=== PATIENT | male | born 1935 | race Caucasian/White ===

== ENCOUNTER 2020-12-16 14:53 | Emergency (ER) | payer MEDICARE, OTHER ==
[~2020-12-16] VITALS: Ht 167.6 cm; Wt 69.2 kg
[~2020-12-16 14:53] MED LIST: CALC-955 PO; CELE-193 PO; CLOP75TA34 PO; FA/M1TAB2 PO; FURO40TA4 PO; GABA-338 PO; GLUC-150 PO; LANS30CA37 PO; LINA145C PO; LOP25T PO; NOR5T PO; RANO500T2 PO
[2020-12-16 16:04] LABS: BASOPHILS % (AUTO) 0.2 % (0-1); EOSINOPHILS % (AUTO) 0.2 % (0-6); HEMATOCRIT 43.5 % (42.0-52.0); HEMOGLOBIN 14.5 g/dl (14.0-17.9); LYMPHOCYTES # (AUTO) 1.1 X10'3 (1.1-4.8); LYMPHOCYTES % (AUTO) 15.6 % (21-51); MEAN CORPUSCULAR HEMOGLOBIN 32.3 PG (27.0-31.0); MEAN CORPUSCULAR HGB CONC 33.3 g/dL (33.0-36.5); MEAN CORPUSCULAR VOLUME 97.1 FL (78-98); MEAN PLATELET VOLUME 7.7 FL (7.4-10.4); MONOCYTES # (AUTO) 0.5 X10'3 (0-0.9); MONOCYTES % (AUTO) 6.7 % (2-12); NEUTROPHILS # (AUTO) 5.7 X10'3 (1.8-7.7); NEUTROPHILS % (AUTO) 77.3 % (42-75); PLATELET COUNT 139 X10'3 (140-440); RED BLOOD COUNT 4.48 X10'6 (4.70-6.10); RED CELL DISTRIBUTION WIDTH 14.2 % (11.5-14.5); WHITE BLOOD COUNT 7.4 X10'3 (4.5-11.0)
[2020-12-16 16:29] LABS: ALANINE AMINOTRANSFERASE 23 U/L (12-78); ALBUMIN 3.4 G/DL (3.4-5.0); ALKALINE PHOSPHATASE 133 IU/L (46-116); ANION GAP 9 (8-16); ASPARTATE AMINO TRANSFERASE 24 U/L (10-37); BILIRUBIN,TOTAL 1.3 MG/DL (0.1-1.0); BLOOD UREA NITROGEN 30 MG/DL (7-18); BUN/CREATININE RATIO 18.3 (5.4-32.0); CHLORIDE 108 MMOL/L (99-107); CREATININE 1.64 MG/DL (0.60-1.10); GLUCOSE 155 MG/DL (70-104); POTASSIUM 3.9 MMOL/L (3.5-5.1); SODIUM 144 MMOL/L (135-145); TOTAL CARBON DIOXIDE 26.9 MMOL/L (24-32); TOTAL PROTEIN 6.7 G/DL (6.4-8.2); eGFR 40 ML/MIN
--- NOTE | 2020-12-16 22:29 | NUR ---
THIS PATIENT WAS ROOMED OUT OF [place] SAFE GUIDELINES OF PATIENT CARE BECOMING MY 5TH PATIENT. PT IS AOX4 GCS 15 IN NAD CURRENTLY WITH AT BEDSIDE; UPON INITIAL ASSESSMENT PT IS BRADYCARDIC, STATES HE HAS A BIOTRONIC PACEMAKER WHICH WE DO NOT HAVE AN INTERROGATOR FOR; MD WANTS TO INTERROGATE; NOTIFIED HIM WE DO NOT HAVE ONE. PT HAS BEEN DIZZY ONGOING FOR DAYS BUT INCREASING TONIGHT;
--- NOTE | 2020-12-16 22:44 | NUR ---
[facility] WAS CONTACTED AND THE REP WILL BE CALLING BACK FOR INTERROGATION
--- NOTE | 2020-12-16 23:14 | NUR ---
[employer] rep called back; faxed over records; states he does not note anything out of the normal; pacemaker is set at 50. notified.
[2020-12-16 23:29] VITALS: BP 139/20
== END 2020-12-16 23:31 | disposition home or self-care (01) ==
LOC: ER 14:54
DX: R42 Dizziness and giddiness (principal); Z20.822 Contact with and (suspected) exposure to COVID-19; R53.1 Weakness; E86.0 Dehydration; I25.10 Atherosclerotic heart disease of native coronary artery without angina pectoris; I10 Essential (primary) hypertension; Z86.73 Personal history of transient ischemic attack (TIA), and cerebral infarction without residual deficits; Z98.890 Other specified postprocedural states; Z79.899 Other long term (current) drug therapy
CPT/HCPCS: 36415; 71045; 80053; 83880; 84484; 85025; 87635; 93005; 99285; C9803

== ENCOUNTER 2022-02-18 07:42 | Emergency (ER) | payer MEDICARE, OTHER ==
[~2022-02-18] VITALS: Ht 170.2 cm; Wt 153.0 kg
[2022-02-18 08:40] LABS: BASOPHILS # (AUTO) 0.1 X10'3 (0-0.2); BASOPHILS % (AUTO) 0.8 % (0-1); EOSINOPHILS % (AUTO) 0.7 % (0-6); HEMATOCRIT 44.4 % (42.0-52.0); HEMOGLOBIN 14.4 g/dl (14.0-17.9); LYMPHOCYTES # (AUTO) 0.7 X10'3 (1.1-4.8); LYMPHOCYTES % (AUTO) 11.2 % (21-51); MEAN CORPUSCULAR HEMOGLOBIN 31.1 PG (27.0-31.0); MEAN CORPUSCULAR HGB CONC 32.4 g/dL (33.0-36.5); MEAN CORPUSCULAR VOLUME 95.9 FL (78-98); MEAN PLATELET VOLUME 8.1 FL (7.4-10.4); MONOCYTES # (AUTO) 0.7 X10'3 (0-0.9); MONOCYTES % (AUTO) 10.4 % (2-12); NEUTROPHILS # (AUTO) 5.2 X10'3 (1.8-7.7); NEUTROPHILS % (AUTO) 76.9 % (42-75); PLATELET COUNT 102 X10'3 (140-440); RED BLOOD COUNT 4.63 X10'6 (4.70-6.10); RED CELL DISTRIBUTION WIDTH 14.2 % (11.5-14.5); WHITE BLOOD COUNT 6.7 X10'3 (4.5-11.0)
[2022-02-18 08:51] LABS: ALANINE AMINOTRANSFERASE 35 U/L (12-78); ALBUMIN 3.1 G/DL (3.4-5.0); ALBUMIN/GLOBULIN RATIO 0.9 (1.1-1.5); ALKALINE PHOSPHATASE 128 IU/L (46-116); ANION GAP 9 (8-16); ASPARTATE AMINO TRANSFERASE 39 U/L (10-37); BILIRUBIN,TOTAL 1.6 MG/DL (0.1-1.0); BLOOD UREA NITROGEN 28 MG/DL (7-18); BUN/CREATININE RATIO 18.4 (5.4-32.0); CALCIUM 8.9 MG/DL (8.5-10.1); CHLORIDE 108 MMOL/L (99-107); CREATININE 1.52 MG/DL (0.60-1.10); GLUCOSE 123 MG/DL (70-104); POTASSIUM 4.2 MMOL/L (3.5-5.1); SODIUM 143 MMOL/L (135-145); TOTAL CARBON DIOXIDE 25.6 MMOL/L (24-32); TOTAL PROTEIN 6.7 G/DL (6.4-8.2); eGFR 44 ML/MIN
[2022-02-18] MEDS ORDERED: amLODIPine 5mg tablet PO ONE (11:45)
[2022-02-18 12:33] VITALS: BP_DIAS 87
[2022-02-18 12:35] VITALS: BP_SYST 170
== END 2022-02-18 13:35 | disposition home or self-care (01) ==
LOC: ER 07:42
DX: R07.89 Other chest pain (principal); I10 Essential (primary) hypertension
CPT/HCPCS: 36415; 71045; 80053; 83880; 84484; 85025; 93005; 99285

== ENCOUNTER 2023-04-10 09:52 | Emergency (ER) | payer OTHER, MEDICARE ==
[~2023-04-10] VITALS: Ht 168.9 cm; Wt 69.0 kg
[~2023-04-10 09:52] MED LIST changes: +ASPI81TA53 PO; +ATOR40TA PO; +ATRNS BOTHNARES; +AZEL137S4 BOTHNARES; +BACL-11 PO; -CALC-955 PO; +CARB-126 PO; +CARB1TAB44 PO; +CARV3.1289 PO; -CELE-193 PO; +CHOL500049 PO; -CLOP75TA34 PO; +DONE10TA44 PO; +DOXA2TAB46 PO; -FA/M1TAB2 PO; +GABA-530 PO; -GLUC-150 PO; +ISOS120T13 PO; -LANS30CA37 PO; -LINA145C PO; -LOP25T PO; -NOR5T PO; +PANT40TA54 PO; +POTA5TAB2 PO; -RANO500T2 PO; +TRAZ-251 PO
[2023-04-10 10:44] LABS: BILIRUBIN,URINE NEGATIVE (Neg); CLARITY,URINE SLIGHTLY CLOUDY (Clear); COLOR,URINE YELLOW (Yellow); GLUCOSE, URINE NEGATIVE (Neg); KETONES,URINE NEGATIVE (Neg); LEUKOCYTE ESTERASE ,URINE NEGATIVE (Neg); NITRITES, URINE NEGATIVE (Neg); OCCULT BLOOD,URINE NEGATIVE (Neg); PH,URINE 5.5 (4.8-8.0); PROTEIN,URINE NEGATIVE (Neg)
[2023-04-10 10:49] LABS: UA COLLECTION TYPE CLN CATCH MIDSTREAM
[2023-04-10 10:50] LABS: MUCUS STRANDS FEW /LPF (Neg)
[2023-04-10 10:51] LABS: BACTERIA,URINE FEW /HPF (Neg); COARSE GRANULAR CAST 0-3 /LPF (NEGATIVE); RBC,URINE 0-2 /HPF (0-2); SQUAMOUS EPITHELIAL CELL,UR FEW /LPF (FEW); WBC,URINE 0-4 /HPF (0-4)
[2023-04-10 11:02] LABS: BASOPHILS % (AUTO) 0.1 % (0-1); EOSINOPHILS # (AUTO) 0.3 X10'3 (0-0.9); EOSINOPHILS % (AUTO) 3.1 % (0-6); HEMATOCRIT 43.5 % (42.0-52.0); LYMPHOCYTES # (AUTO) 0.7 X10'3 (1.1-4.8); LYMPHOCYTES % (AUTO) 8.2 % (21-51); MEAN CORPUSCULAR HGB CONC 32.1 g/dL (33.0-36.5); MEAN CORPUSCULAR VOLUME 99.5 FL (78-98); MONOCYTES # (AUTO) 0.7 X10'3 (0-0.9); MONOCYTES % (AUTO) 7.4 % (2-12); NEUTROPHILS # (AUTO) 7.2 X10'3 (1.8-7.7); NEUTROPHILS % (AUTO) 81.2 % (42-75); PLATELET COUNT 100 X10'3 (140-440); RED BLOOD COUNT 4.37 X10'6 (4.70-6.10); RED CELL DISTRIBUTION WIDTH 15.3 % (11.5-14.5); WHITE BLOOD COUNT 8.9 X10'3 (4.5-11.0)
[2023-04-10 11:10] LABS: URINE AMPHETAMINE SCREEN NEGATIVE (Neg); URINE BARBITUATE SCREEN NEGATIVE (Neg); URINE BENZODIAZEPINES SCREEN NEGATIVE (Neg); URINE CANNABINOID SCREEN NEGATIVE (Neg); URINE COCAINE SCREEN NEGATIVE (Neg); URINE METHADONE SCREEN NEGATIVE (Neg); URINE OPIATE SCREEN POSITIVE (Neg); URINE PHENCYCLIDINE SCREEN NEGATIVE (Neg)
[2023-04-10] MEDS ORDERED: normal saline 500ml IV soln 500 ML IV ONE (11:20)
[2023-04-10 11:26] LABS: ALANINE AMINOTRANSFERASE 15 U/L (12-78); ALBUMIN/GLOBULIN RATIO 0.6 (1.1-1.5); ALKALINE PHOSPHATASE 129 IU/L (46-116); ANION GAP 3 (8-16); ASPARTATE AMINO TRANSFERASE 52 U/L (10-37); BILIRUBIN,TOTAL 1.4 MG/DL (0.1-1.0); BLOOD UREA NITROGEN 39 MG/DL (7-18); BUN/CREATININE RATIO 27.1 (10.0-20.0); CALCIUM 8.4 MG/DL (8.5-10.1); CHLORIDE 109 MMOL/L (99-107); CREATININE 1.44 MG/DL (0.60-1.10); GLUCOSE 148 MG/DL (70-104); SODIUM 139 MMOL/L (135-145); TOTAL CARBON DIOXIDE 26.8 MMOL/L (24-32); TOTAL PROTEIN 5.3 G/DL (6.4-8.2); eCRCL 33 ML/MIN; eGFR 46 ML/MIN
[2023-04-10 11:33] LABS: PRO BRAIN NATRIURETIC PEPTIDE 820 PG/ML (0-450)
[2023-04-10 11:36] LABS: POTASSIUM 4.2 MMOL/L (3.5-5.1)
[2023-04-10 12:22] VITALS: TEMP 97.7
[2023-04-10 14:39] VITALS: BP 110/76; PULSE 67; RESP 17; O2SAT 97
== END 2023-04-10 14:41 ==
LOC: ER 09:53
DX: T40.2X1A Poisoning by other opioids, accidental (unintentional), initial encounter (principal); I10 Essential (primary) hypertension; Z79.82 Long term (current) use of aspirin; Z79.899 Other long term (current) drug therapy; Y92.89 Other specified places as the place of occurrence of the external cause
CPT/HCPCS: 36415; 70450; 71045; 80053; 80305; 81001; 83880; 84484; 85025; 93005; 99285; J7040

== ENCOUNTER 2023-10-07 09:10 | Emergency (ER) | payer OTHER, MEDICARE ==
[~2023-10-07] VITALS: Ht 170.2 cm; Wt 75.0 kg
[~2023-10-07 09:10] MED LIST changes: +APIX2.5T PO; -ASPI81TA53 PO; -CARB-126 PO; -CARB1TAB44 PO; +DICL100G60 TOP; +DOXA1TAB2 PO; -DOXA2TAB46 PO; -FURO40TA4 PO; -GABA-338 PO; +PANT-47 PO; -PANT40TA54 PO; -POTA5TAB2 PO; -TRAZ-251 PO; +[UNRECOGNIZED DRUG - CODE] PO
[2023-10-07 09:56] LABS: ALANINE AMINOTRANSFERASE 16 U/L (12-78); ALBUMIN 3.1 G/DL (3.4-5.0); ALBUMIN/GLOBULIN RATIO 0.7 (1.1-1.5); ALKALINE PHOSPHATASE 201 IU/L (46-116); ANION GAP 8 (8-16); ASPARTATE AMINO TRANSFERASE 27 U/L (10-37); BILIRUBIN,TOTAL 1.5 MG/DL (0.1-1.0); BLOOD UREA NITROGEN 19 MG/DL (7-18); BUN/CREATININE RATIO 13.4 (10.0-20.0); CALCIUM 9.2 MG/DL (8.5-10.1); CHLORIDE 105 MMOL/L (99-107); CREATININE 1.42 MG/DL (0.60-1.10); GLUCOSE 126 MG/DL (70-104); POTASSIUM 3.8 MMOL/L (3.5-5.1); SODIUM 141 MMOL/L (135-145); TOTAL CARBON DIOXIDE 28.3 MMOL/L (24-32); TOTAL PROTEIN 7.5 G/DL (6.4-8.2); eCRCL 34 ML/MIN; eGFR 47 ML/MIN
[2023-10-07 10:03] LABS: BILIRUBIN,DIRECT 0.7 MG/DL (0-0.3); PRO BRAIN NATRIURETIC PEPTIDE 3526 PG/ML (0-450)
[2023-10-07 10:07] LABS: BASOPHILS % (AUTO) 0.3 % (0-1); EOSINOPHILS % (AUTO) 0.6 % (0-6); HEMATOCRIT 39.9 % (42.0-52.0); HEMOGLOBIN 12.2 g/dl (14.0-17.9); LYMPHOCYTES # (AUTO) 1.2 X10'3 (1.1-4.8); LYMPHOCYTES % (AUTO) 18.5 % (21-51); MEAN CORPUSCULAR HEMOGLOBIN 23.5 PG (27.0-31.0); MEAN CORPUSCULAR HGB CONC 30.5 g/dL (33.0-36.5); MEAN PLATELET VOLUME 7.6 FL (7.4-10.4); MONOCYTES # (AUTO) 0.4 X10'3 (0-0.9); MONOCYTES % (AUTO) 6.8 % (2-12); NEUTROPHILS # (AUTO) 4.8 X10'3 (1.8-7.7); NEUTROPHILS % (AUTO) 73.8 % (42-75); PLATELET COUNT 153 X10'3 (140-440); RED BLOOD COUNT 5.18 X10'6 (4.70-6.10); RED CELL DISTRIBUTION WIDTH 18.4 % (11.5-14.5); WHITE BLOOD COUNT 6.6 X10'3 (4.5-11.0)
[2023-10-07] MEDS: furosemide 40mg/4ml inj IV ONE (12:36)
[2023-10-07 13:35] LABS: LYMPHOCYTES,BODY FLUID 70 %; MONOCYTES,BODY FLUID 18 %; NEUTROPHILS,BODY FLUID 12 %
[2023-10-07 13:38] LABS: BF RBC COUNT 2500 /CU MM; BF WBC COUNT 288 /CU MM (0-1000); BFAPPEAR HAZY; BFCOLOR YELLOW; BFSOURCE LEFT PLEURAL FLD; BFVOLUME 18 ML
[2023-10-07 13:54] LABS: LDH,BODY FLUID 71 U/L
[2023-10-07 15:49] VITALS: BP 178/98; PULSE 69; RESP 14; TEMP 98.1; O2SAT 69
[2023-10-07] MEDS: acetaminophen w/codeine (30MG) #3 tablet PO ONE (15:52)
== END 2023-10-07 16:02 | disposition home or self-care (01) ==
LOC: ER 09:11
DX: J90 Pleural effusion, not elsewhere classified (principal); R09.02 Hypoxemia; I10 Essential (primary) hypertension; Z79.899 Other long term (current) drug therapy; Z79.1 Long term (current) use of non-steroidal anti-inflammatories (NSAID)
CPT/HCPCS: 32555; 36415; 71045; 71250; 80048; 80076; 83615; 83880; 84484; 85025; 87070; 89051; 93005; 96374; 99285; J1940; A6258

== ENCOUNTER 2023-10-14 05:39 | Emergency (ER) | payer OTHER, MEDICARE ==
[~2023-10-14] VITALS: Ht 167.6 cm; Wt 79.2 kg
[2023-10-14 07:15] LABS: BASOPHILS % (AUTO) 0.1 % (0-1); EOSINOPHILS # (AUTO) 0.2 X10'3 (0-0.9); HEMATOCRIT 40.1 % (42.0-52.0); HEMOGLOBIN 12.5 g/dl (14.0-17.9); LYMPHOCYTES # (AUTO) 1.2 X10'3 (1.1-4.8); LYMPHOCYTES % (AUTO) 21.6 % (21-51); MEAN CORPUSCULAR HEMOGLOBIN 24.4 PG (27.0-31.0); MEAN CORPUSCULAR HGB CONC 31.2 g/dL (33.0-36.5); MEAN CORPUSCULAR VOLUME 78.1 FL (78-98); MEAN PLATELET VOLUME 7.7 FL (7.4-10.4); MONOCYTES # (AUTO) 0.4 X10'3 (0-0.9); MONOCYTES % (AUTO) 6.9 % (2-12); NEUTROPHILS # (AUTO) 3.9 X10'3 (1.8-7.7); NEUTROPHILS % (AUTO) 68.4 % (42-75); PLATELET COUNT 143 X10'3 (140-440); RED BLOOD COUNT 5.13 X10'6 (4.70-6.10); RED CELL DISTRIBUTION WIDTH 23.2 % (11.5-14.5); WHITE BLOOD COUNT 5.7 X10'3 (4.5-11.0)
[2023-10-14 07:32] LABS: ALANINE AMINOTRANSFERASE 15 U/L (12-78); ALBUMIN 2.9 G/DL (3.4-5.0); ALBUMIN/GLOBULIN RATIO 0.7 (1.1-1.5); ALKALINE PHOSPHATASE 225 IU/L (46-116); ANION GAP 8 (8-16); ASPARTATE AMINO TRANSFERASE 38 U/L (10-37); BILIRUBIN,TOTAL 1.2 MG/DL (0.1-1.0); BLOOD UREA NITROGEN 24 MG/DL (7-18); BUN/CREATININE RATIO 17.4 (10.0-20.0); CHLORIDE 107 MMOL/L (99-107); CREATININE 1.38 MG/DL (0.60-1.10); GLUCOSE 119 MG/DL (70-104); SODIUM 142 MMOL/L (135-145); TOTAL CARBON DIOXIDE 26.8 MMOL/L (24-32); TOTAL PROTEIN 7.1 G/DL (6.4-8.2); eCRCL 33 ML/MIN; eGFR 49 ML/MIN
[2023-10-14 07:39] LABS: PRO BRAIN NATRIURETIC PEPTIDE 2815 PG/ML (0-450)
[2023-10-14 11:07] VITALS: BP 170/90; PULSE 75; RESP 21; TEMP 98.6; O2SAT 96
[2023-10-14] MEDS: furosemide 10 MG/1 ML 10ml inj IV ONE (11:12)
== END 2023-10-14 11:09 | disposition home or self-care (01) ==
LOC: ER 05:40
DX: R06.02 Shortness of breath (principal); I50.9 Heart failure, unspecified; I11.0 Hypertensive heart disease with heart failure; I48.91 Unspecified atrial fibrillation; I25.10 Atherosclerotic heart disease of native coronary artery without angina pectoris; F03.90 Unspecified dementia, unspecified severity, without behavioral disturbance, psychotic disturbance, mood disturbance, and anxiety; Z79.899 Other long term (current) drug therapy; Z79.1 Long term (current) use of non-steroidal anti-inflammatories (NSAID); Z95.0 Presence of cardiac pacemaker; Z98.890 Other specified postprocedural states
CPT/HCPCS: 36415; 71045; 80053; 83880; 84484; 85025; 93005; 96374; 99285; J1940

== ENCOUNTER 2023-10-22 06:55 | Emergency (ER) | payer OTHER, MEDICARE ==
[~2023-10-22] VITALS: Ht 168.9 cm; Wt 69.1 kg
[2023-10-22 07:47] LABS: BASOPHILS % (AUTO) 0.4 % (0-1); EOSINOPHILS # (AUTO) 0.2 X10'3 (0-0.9); EOSINOPHILS % (AUTO) 2.4 % (0-6); HEMATOCRIT 43.8 % (42.0-52.0); HEMOGLOBIN 13.6 g/dl (14.0-17.9); LYMPHOCYTES # (AUTO) 1.7 X10'3 (1.1-4.8); LYMPHOCYTES % (AUTO) 24.1 % (21-51); MEAN CORPUSCULAR HEMOGLOBIN 24.7 PG (27.0-31.0); MEAN CORPUSCULAR HGB CONC 31.1 g/dL (33.0-36.5); MEAN CORPUSCULAR VOLUME 79.7 FL (78-98); MEAN PLATELET VOLUME 8.5 FL (7.4-10.4); MONOCYTES # (AUTO) 0.4 X10'3 (0-0.9); MONOCYTES % (AUTO) 6.4 % (2-12); NEUTROPHILS # (AUTO) 4.7 X10'3 (1.8-7.7); NEUTROPHILS % (AUTO) 66.7 % (42-75); PLATELET COUNT 143 X10'3 (140-440); RED CELL DISTRIBUTION WIDTH 25.3 % (11.5-14.5)
[2023-10-22 08:07] LABS: ANISOCYTOSIS 3+; ELLIPTOCYTES FEW; MICROCYTOSIS 1+; PLATELET ESTIMATE NORMAL
[2023-10-22 08:09] VITALS: BP_DIAS 96
[2023-10-22 08:50] LABS: ALBUMIN 3.1 G/DL (3.4-5.0); ANION GAP 11 (8-16); BLOOD UREA NITROGEN 22 MG/DL (7-18); BUN/CREATININE RATIO 15.9 (10.0-20.0); CALCIUM 9.1 MG/DL (8.5-10.1); CHLORIDE 106 MMOL/L (99-107); CREATININE 1.38 MG/DL (0.60-1.10); GLUCOSE 121 MG/DL (70-104); POTASSIUM 3.7 MMOL/L (3.5-5.1); PRO BRAIN NATRIURETIC PEPTIDE 3787 PG/ML (0-450); SODIUM 143 MMOL/L (135-145); TOTAL CARBON DIOXIDE 25.9 MMOL/L (24-32); eCRCL 34 ML/MIN; eGFR 49 ML/MIN
[2023-10-22 10:46] VITALS: PULSE 77; RESP 22; TEMP 98.5; O2SAT 98
== END 2023-10-22 10:49 | disposition home or self-care (01) ==
LOC: ER 06:56
DX: R06.02 Shortness of breath (principal); R05.9 Cough, unspecified; F03.90 Unspecified dementia, unspecified severity, without behavioral disturbance, psychotic disturbance, mood disturbance, and anxiety; I48.91 Unspecified atrial fibrillation; I25.10 Atherosclerotic heart disease of native coronary artery without angina pectoris; I10 Essential (primary) hypertension; Z79.899 Other long term (current) drug therapy; Z86.73 Personal history of transient ischemic attack (TIA), and cerebral infarction without residual deficits; Z95.1 Presence of aortocoronary bypass graft; Z98.890 Other specified postprocedural states; Z95.0 Presence of cardiac pacemaker
CPT/HCPCS: 36415; 71045; 80048; 83880; 84484; 85008; 85025; 93005; 99285

== ENCOUNTER 2024-01-23 19:50 | Emergency (ER) | payer OTHER, MEDICARE ==
[~2024-01-23] VITALS: Ht 167.6 cm; Wt 70.0 kg
[2024-01-24] MEDS ORDERED: LIDO700A32 TOP (02:26)
[2024-01-24] MEDS ORDERED: DICL20GE TOP (02:26)
[2024-01-24 03:49] VITALS: BP 117/78; PULSE 78; RESP 16; TEMP 98.1; O2SAT 100
== END 2024-01-24 03:54 | disposition home or self-care (01) ==
LOC: ER 19:51
DX: S20.212A Contusion of left front wall of thorax, initial encounter (principal); F02.80 Dementia in other diseases classified elsewhere, unspecified severity, without behavioral disturbance, psychotic disturbance, mood disturbance, and anxiety; G20.A1 Parkinson's disease without dyskinesia, without mention of fluctuations; I10 Essential (primary) hypertension; I25.10 Atherosclerotic heart disease of native coronary artery without angina pectoris; I48.91 Unspecified atrial fibrillation; G89.11 Acute pain due to trauma; Z79.899 Other long term (current) drug therapy; Z79.1 Long term (current) use of non-steroidal anti-inflammatories (NSAID); Z86.73 Personal history of transient ischemic attack (TIA), and cerebral infarction without residual deficits; Z95.0 Presence of cardiac pacemaker; Z95.1 Presence of aortocoronary bypass graft; W01.198A Fall on same level from slipping, tripping and stumbling with subsequent striking against other object, initial encounter; Y93.89 Activity, other specified; Y92.89 Other specified places as the place of occurrence of the external cause; Y99.8 Other external cause status
CPT/HCPCS: 70450; 71250; 72125; 99285

== ENCOUNTER 2024-08-01 10:23 | Inpatient (IN) | payer OTHER, MEDICARE ==
[~2024-08-01] VITALS: Ht 162.6 cm; Wt 77.0 kg
[~2024-08-01 10:23] MED LIST changes: +CARB-491 PO; +DICL20GE TOP; +LIDO700A32 TOP; -[UNRECOGNIZED DRUG - CODE] PO
--- NOTE | 2024-08-01 10:41 | ELECTROCARDIOGRAPH REPORT ---
[facility] Test Date: 2024-08-01 Test Time: 10:28:42 Pat Name: MONA CUEVAS Department: EMERGENCY ROOM Room: [place] [address] Gender: M Rn Hedis: : 1935 Requested By: RICHARD BETTS Order Number: [id number] Reading MD: Dr. Jorge Crane Measurements Intervals [place] Rate: 72 P: 0 MI: 153 QRS: 25 QRSD: 95 T: 222 QT: 440 QTc: 482 Interpretive Statements Atrial-paced rhythm Repol abnrm suggests ischemia, anterolateral Baseline wander in lead(s) II Electronically Signed On 08-01-2024 22:15:[address] Jorge Crane Please click the below link to view image of tracing.
--- NOTE | 2024-08-01 11:19 | RADIOLOGY REPORT ---
EXAM: DI CHEST,SINGLE VIEW Indication: SOB Technique: Single frontal view of the chest was obtained Comparison: DI CHEST,SINGLE VIEW on DOS: 10/22/23, DI CHEST,SINGLE VIEW on DOS: 10/14/23, DI CHEST,SING LE VIEW on DOS: 10/07/23, DI CHEST,SINGLE VIEW on DOS: 07/18/23, DI CHEST,SINGLE VIEW on DOS: 04/29/23 FINDINGS: Lines and Tubes: Cardiac pacemaker projects over left chest wall. Lungs: Bibasilar opacities. Pleura: Moderate right and small left pleural effusion. No pneumothorax. Cardiomediastinal contours: Cardiomegaly. Bones: No acute osseous abnormality. IMPRESSION: Cardiomegaly with moderate right and small left pleural effusion.
[2024-08-01 11:23] LABS: BASOPHILS % (AUTO) 0.5 % (0-1); EOSINOPHILS # (AUTO) 0.1 X10'3 (0-0.9); EOSINOPHILS % (AUTO) 1.4 % (0-6); HEMATOCRIT 28.3 % (42.0-52.0); HEMOGLOBIN 8.8 g/dl (14.0-17.9); LYMPHOCYTES # (AUTO) 0.7 X10'3 (1.1-4.8); MEAN CORPUSCULAR HEMOGLOBIN 22.8 PG (27.0-31.0); MEAN CORPUSCULAR HGB CONC 31.1 g/dL (33.0-36.5); MEAN CORPUSCULAR VOLUME 73.4 FL (78-98); MEAN PLATELET VOLUME 7.5 FL (7.4-10.4); MONOCYTES # (AUTO) 0.5 X10'3 (0-0.9); MONOCYTES % (AUTO) 10.3 % (2-12); NEUTROPHILS # (AUTO) 3.5 X10'3 (1.8-7.7); NEUTROPHILS % (AUTO) 72.8 % (42-75); PLATELET COUNT 165 X10'3 (140-440); RED BLOOD COUNT 3.85 X10'6 (4.70-6.10); RED CELL DISTRIBUTION WIDTH 20.1 % (11.5-14.5); WHITE BLOOD COUNT 4.8 X10'3 (4.5-11.0)
[2024-08-01 11:41] LABS: ANION GAP 6 (8-16); BLOOD UREA NITROGEN 18 MG/DL (7-18); CALCIUM 8.4 MG/DL (8.5-10.1); CHLORIDE 105 MMOL/L (99-107); CREATININE 1.64 MG/DL (0.60-1.10); GLUCOSE 177 MG/DL (70-104); POTASSIUM 3.7 MMOL/L (3.5-5.1); PRO BRAIN NATRIURETIC PEPTIDE 1707 PG/ML (0-450); SODIUM 139 MMOL/L (135-145); TOTAL CARBON DIOXIDE 28.2 MMOL/L (24-32); eCRCL 26 ML/MIN; eGFR 40 ML/MIN
[2024-08-01 12:02] LABS: ANISOCYTOSIS 3+; MICROCYTOSIS 1+; PLATELET ESTIMATE NORMAL
[2024-08-01 12:03] LABS: BURR CELLS FEW; ELLIPTOCYTES FEW; TARGET CELLS FEW
--- NOTE | 2024-08-01 12:04 | Physician Documentation ---
History of Present Illness ~ Chief Complaint: Shortness of Breath Stated Complaint: WEAKNESS Time Seen by MD: 10:37 Primary Medical Doctor: Cain El MD; CAMERA ENGINEER: NILESH Source: patient Mode of Arrival: EMS Exam Limitations: no limitations HPI 89-year-old male who comes in today from [place] due to weakness. Patient normally is on room air but is currently requiring oxygen as when paramedics got there his oxygen saturation was 88% on room air. Patient was scheduled for a thoracentesis on Sunday which he gets occasionally for his congestive heart failure. Patient is on Lasix 20 mg. Patient denies chest pain, abdominal pain, nausea, vomiting or any other concerns. Medication Reconciliation Allergies: Coded Allergies: No Known Allergies (Unverified , 08/01/24) Scheduled Apixaban (Eliquis), 1 TAB PO Q12H, (Reported) Atorvastatin Calcium* (Lipitor*), 1 TAB PO HS, (Reported) Azelastine HCl (Azelastine HCl), SPR BOTHNARES TID, (Reported) Baclofen (Baclofen), 1 TAB PO HS, (Reported) Carbidopa/Levodopa (Carbidopa-Levodopa 25-100 Tab), 2 EACH PO QID, (Reported) Cholecalciferol (Vitamin D3) (Vitamin D3), 1 CAP PO Q7D, (Reported) Diclofenac Sodium (Arthritis Pain), 1 APPLIC TOP DAILY, (Reported) Donepezil Hcl (Aricept), 10 MG PO HS, (Reported) Duloxetine HCl (Duloxetine HCl), 1 CAP PO HS, (Reported) Furosemide (Furosemide), 1 TAB PO BID, (Reported) Gabapentin (Gabapentin), 1 CAP PO DAILY, (Reported) Ipratropium [place] Nasal [place]* (Atrovent Nasal [place] 0.06*), 2 SPRAYS BOTHNARES Q8H, (Reported) Isosorbide Mononitrate (Isosorbide Mononitrate ER), 1 TAB PO DAILY, (Reported) Pantoprazole Sodium (PROTONIX tablet), 1 TAB PO DAILY, (Reported) Potassium Citrate (Potassium Citrate ER), 1 TAB PO Q12H, (Reported) Tamsulosin Hcl* (Flomax*), 1 CAP PO HS, (Reported) Valsartan (Valsartan), 1 TAB PO DAILY, (Reported) Vit C/E/Zn/Coppr/Lutein/Zeaxan (Preservision Areds 2 Softgel), 1 CAP PO Q12H, (Reported) Miscellaneous Medications Gabapentin (Neurontin), 300 MG PO, (Reported) Discontinued Medications Carvedilol (Carvedilol), 1 TAB PO Q12H, (Reported) Discontinued Reason: patient no longer taking Diclofenac Sodium (Voltaren Arthritis Pain), 1 APPLIC TOP DAILY Discontinued Reason: patient no longer taking Doxazosin Mesylate (Doxazosin Mesylate), 1 TAB PO DAILY, (Reported) Discontinued Reason: patient no longer taking Lidocaine (Lidoderm), 1 PATCH TOP DAILY Discontinued Reason: patient no longer taking Past Medical History Past Medical History: CVA/TIA/Stroke, Dementia, Parkinson's Disease, Atrial Fibrillation, Coronary Artery Disease, Hypertension Past Surgical History: angioplasty, coronary bypass surgery, orthopedic surgeries, pacemaker Drug Use: none Occupation: retired Review of Systems All Other Systems at this time: Reviewed and Negative Physical Exam Vital Signs: Temperature: 97.8, Source: Oral, Heart Rate: 63, Respiratory Rate: 22, BP: 106/62, Pulse Oximetry: 98, Weight: 77.000 Oxygen Flow Rate: 2.0 Physical Exam GENERAL: Alert, no acute distress. HEENT: NCAT, EOMI, PERRL, normal oropharynx, moist oral mucosa. NECK: Supple, trachea midline. CARDIAC: Regular rate and rhythm, no murmurs, rubs, or gallops. Equal distal pulses. 1+ PITTING lower extremity edema, cap refill less than 2 seconds. RESPIRATORY: DECREASED BS THROUGHOUT LOWER LUNG OSEI WITH SCATTERED CRACKLES AT BASES. SLIGHTLY INCREASED RESPIRATORY RATE. GASTROINTESTINAL: Non distended, soft, nontender, No guarding or rebound. RECTAL: LIGHT BROWN STOOL IN RECTUM AND AROUND ANUS, FOBT POSITIVE MUSCULOSKELETAL: Normal range of motion, nontender, no swelling. NEUROLOGICAL: Awake, alert, and oriented x 3. SKIN: Warm/dry, no pallor, no rash. PSYCH: Alert and appropriate. Affect congruent with mood. Speech is clear. Good eye contact. Progress Results/Orders Results/Orders Orders - RICHARD BETTS Chest,Single View (08/01/24 10:37) Monitor (08/01/24 10:37) Page Hospitalist (08/01/24 12:04) Urinalysis, Cult If Indicated (08/01/24 12:47) Culture Blood (08/01/24 12:47) Completed Orders - RICHARD BETTS Electrocardiogram (08/01/24 10:37) Cbc/Diff (08/01/24 10:37) Chest,Single View (08/01/24 10:37) PBNP (08/01/24 10:37) BMP (08/01/24 10:37) PTT (08/01/24 10:37) Pt Inr (08/01/24 10:37) Hs Troponin I W Calculations (08/01/24 10:37) Hs Troponin I W Calculations (08/01/24 12:37) Hs Troponin I W Calculations (08/01/24 13:37) Potassium Cl 10meq Er Tablet (Klor-Con 1 (08/01/24 12:44) MG (08/01/24 12:47) Procalcitonin (08/01/24 12:47) Lacticsepsis (08/01/24 12:47) Furosemide 20mg Inj (Lasix Inj) (08/01/24 12:50) Medications Received in ER Medications (Trade) Dose Ordered Sig/Richie Route PRN Reason Start Time Stop Time Status Last Admin Dose Admin (Klor-Con 10mEq ER tablet) 10 meq STAT STAT PO 08/01/24 12:44 08/01/24 12:46 DC 08/01/24 13:12 10 MEQ (Lasix inj) 20 mg ONCE ONCE IV 08/01/24 12:50 08/01/24 12:51 DC 08/01/24 13:12 20 MG Vital Signs 08/01/24 08/01/24 08/01/24 08/01/24 10:32 10:52 11:15 13:04 Temp 97.8 97.8 97.8 Pulse 66 63 63 Resp 22 24 22 18 B/P (MAP) 104/56 106/62 (77) 128/85 (99) Pulse Ox 96 98 100 O2 Flow Rate 2.0 2.0 2.0 Laboratory Tests Test 08/01/24 10:49 08/01/24 13:04 White Blood Count 4.8 Red Blood Count 3.85 L Hemoglobin 8.8 L Hematocrit 28.3 L Mean Corpuscular Volume 73.4 L Mean Corpuscular Hemoglobin 22.8 L Mean Corpuscular Hemoglobin Concent 31.1 L Red Cell Distribution Width 20.1 H Platelet Count 165 Mean Platelet Volume 7.5 Neutrophils (%) (Auto) 72.8 Lymphocytes (%) (Auto) 15.0 L Monocytes (%) (Auto) 10.3 Eosinophils (%) (Auto) 1.4 Basophils (%) (Auto) 0.5 Neutrophils # (Auto) 3.5 Lymphocytes # (Auto) 0.7 L Monocytes # (Auto) 0.5 Eosinophils # (Auto) 0.1 Basophils # (Auto) 0.0 CBC Comment Platelet Estimate Normal Red Blood Cell Morphology Perf Basophilic Stippling Anisocytosis 3+ Microcytosis 1+ Target Cells Few Nick Cells Few Elliptocytes Few Prothrombin Time 11.8 INR International Normalized Ratio 1.2 Activated Partial Thromboplast Time 31 Coagulation Comments Sodium Level 139 Potassium Level 3.7 Chloride Level 105 Carbon Dioxide Level 28.2 Anion Gap 6 L Blood Urea Nitrogen 18 Creatinine 1.64 H Estimated GFR/1.73 m2 40 BUN/Creatinine Ratio 11.0 Glucose Level 177 H Calcium Level 8.4 L Troponin I High Sensitivity 17 17 Pro-B-Type Natriuretic Peptide 1707 H Albumin 2.0 L Chemistry Comments Lactic Acid Level 1.9 Magnesium Level 2.3 Troponin I High Sens Percent Delta 0 Troponin I Hi Sens Absolute Change 0 Procalcitonin 0.10 EKG/XRAY/CT/US/VASC/MRI Chest X-Ray : Interpreted By: radiologist Views: 1 VIEW Indication: shortness of breath Lungs: pulmonary edema, effusion; No: infiltrate Heart Score: Heart Score Response (Comments) Value History Slightly Suspicious 0 EKG Normal 0 Age >65 2 Risk Factors 1 or 2 risk factors 1 Troponin Normal limit 0 Total 3 Medical Decision Making Heart Score: 3 Differential Dx:Considerations: Include: anxiety, asthma, bronchitis, cardiogenic shock, CHF, COPD, dysrhythmia, hypertension, accelerated, hypertension, essential, hypertension, malignant, hyperventilation, hyponatremia, myocardial infarction, panic attack, pneumonia, pneumonitis, pneumothorax, PSVT, pulmonary embolism, respiratory distress, respiratory failure, sinusitis, upper resp. infection, other Additional Infomation PATIENT HAS FINDINGS OF CHF EXACERBATION PATIENT HAS DIFFICULTY TOLERATING HIGH DOSAGE LASIX DUE TO HYPOTENSION RELATED TO AUTONOMIC DYSFUNCTION FROM [place] SCHEDULED FOR THORACENTESIS SUNDAY RECOMMEND ADMISSION FOR TREATMENT OF CHF SINCE NOW REQUIRING OXYGEN AND HAS EVIDENCE OF CHF EXACERBATION Departure Time of Disposition: 12:01 Admitted to Inpatient Unit: to hospitalist Impression: Primary Impression: CHF exacerbation Qualified Codes: I50.9 - Heart failure, unspecified Additional Impressions: Parkinson disease Qualified Codes: G20.A1 - Parkinson's disease without dyskinesia, without mention of fluctuations Hypochromic microcytic anemia Diarrhea Qualified Codes: R19.7 - Diarrhea, unspecified Occult blood positive stool Condition: Fair Referrals: NO PRIMARY CARE PROVIDER (PCP) Education Educated: Patient Educated regarding: diagnosis, treatment, need for follow up Signature Scribe Signature: x Attestation: RICHARD Duarte August 01, 2024 12:04
[2024-08-01 12:12] LABS: APTT 31 SECONDS (22-32); INR 1.2 INR; PROTHROMBIN TIME 11.8 SECONDS (9.0-12.0)
[2024-08-01] MEDS ORDERED: TAMS-55 PO (12:40)
[2024-08-01] MEDS ORDERED: DULO30CA52 PO (12:40)
[2024-08-01] MEDS ORDERED: VALS40TA11 PO (12:40)
[2024-08-01] MEDS ORDERED: FURO20TA4 PO (12:40)
[2024-08-01] MEDS ORDERED: furosemide 10 MG/1 ML 10ml inj IV ONE (12:45)
[2024-08-01] MEDS ORDERED: POTA15TA11 PO (12:46)
[2024-08-01] MEDS ORDERED: GABA300C PO (12:46)
[2024-08-01] MEDS ORDERED: VIT1CAPS46 PO (13:03)
[2024-08-01] MEDS ORDERED: ondansetron/PF 4mg/2ml inj IV PRN (13:05)
[2024-08-01] MEDS ORDERED: acetaminophen 325mg tablet PO PRN (13:05)
[2024-08-01] MEDS ORDERED: potassium Cl 20 mEq SR tablet PO PRN ×2 (13:05)
[2024-08-01] MEDS ORDERED: potassium Cl 40MEQ/1/2NS 520ml 520 ML IV PRN (13:05)
[2024-08-01] MEDS ORDERED: magnesium sulf-water 4G/100mL 100 ML IV PRN (13:05)
[2024-08-01] MEDS ORDERED: magnesium Cl slow-release 64mg tablet PO PRN (13:05)
[2024-08-01] MEDS ORDERED: magnesium sulf-water 2g/50mL 50 ML IV PRN (13:05)
[2024-08-01] MEDS: furosemide 20 MG/2 ML vial IV ONE (13:12)
[2024-08-01] MEDS: potassium chloride 10mEq ER tablet PO STA (13:12)
[2024-08-01 14:27] LABS: OCCULT BLOOD STOOL POSITIVE (Neg)
--- NOTE | 2024-08-01 15:43 | HISTORY AND PHYSICAL-Residence ---
History & Physical Providers to CC Resident Creating Document: CALIXTO MORALES, RES ~ History of Present Illness Primary Medical Doctor: Cain El MD; DRIER TRANSFER CAR OPERATOR: NILESH Reason for Admit\Complaint: Weakness History of Present Illness A 89 years old male with history of CHF, AFib, CVA, coronary artery disease status post stent, CABG, pacemaker, chronic anemia presented to the ED due to progressive weakness. Most of the information gathered from his and medical staff and previous charting. Patient had progressive weakness waiting couple of weeks. Patient had history of multiple thoracentesis in the past due to dyspnea and next appointment is next Sunday. Patient also has history of AFib and on Eliquis. He denied chest pain, tightness, cough, fever chills. Patient denied any hematemesis, melena or any changing in bowel habits. Primary care doctor is Dr. El and manganese breaker is Dr. Senior Allergies: Coded Allergies: No Known Allergies (Unverified , 08/01/24) Home Medications Home Medications Active Reported Preservision Areds 2 Softgel (Vit C/E/Zn/Coppr/Lutein/Zeaxan) 250MG-90MG Capsule 1 Cap PO Q12H 30 Days Potassium Citrate ER (Potassium Citrate) 15 Meq (1620 Mg) Tablet.er 1 Tab PO Q12H 30 Days Neurontin (Gabapentin) 300 Mg Capsule 300 Mg PO Valsartan 40 Mg Tablet 1 Tab PO DAILY Flomax* (Tamsulosin HCl) 0.4 Mg Cap.sr.24h 1 Cap PO HS Duloxetine HCl 30 Mg Capsule.dr 1 Cap PO HS Furosemide 20 Mg Tablet 1 Tab PO BID Gabapentin 100 Mg Capsule 1 Cap PO DAILY 30 Days Vitamin D3 (Cholecalciferol (Vitamin D3)) 1,250 Mcg (41393 Unit) Capsule 1 Cap PO Q7D 28 Days PROTONIX tablet (Pantoprazole Sodium) 40 Mg Tablet.dr 1 Tab PO DAILY 30 Days Arthritis Pain (Diclofenac Sodium) 1 % Gel..gram. 1 Applic TOP DAILY Carbidopa-Levodopa 25-100 Tab (Carbidopa/Levodopa) 25 Mg-100 Mg Tablet 2 Each PO QID Eliquis (Apixaban) 2.5 Mg Tablet 1 Tab PO Q12H 30 Days Atrovent Nasal [place] 0.06* (Ipratropium [place]) 42 Mcg (0.06 %) [place] 2 Sprays BOTHNARES Q8H 20 Days Isosorbide Mononitrate ER (Isosorbide Mononitrate) 120 Mg Tab.er.24h 1 Tab PO DAILY 30 Days Aricept (Donepezil HCl) 10 Mg Tablet 10 Mg PO HS Baclofen 10 Mg Tablet 1 Tab PO HS 30 Days Lipitor* (Atorvastatin Calcium) 40 Mg Tablet 1 Tab PO HS 30 Days Azelastine HCl 137 Mcg (0.1 %) [place].pump Spr BOTHNARES TID Past Medical History Past Medical History CHF with preserved ejection fraction AFib CVA Coronary artery disease status post stent /CABG Pacemaker in place CVA Past Surgical History Surgical History Comment CABG more than 20 years ago Coronary artery stent (probably more than 10 years ago, unknown year) Colonoscopy many years ago(unknown year) Pacemaker Family History Family History: FH: heart failure (Mother,) Past Social History Smoking: Non-Smoker Drug Use: None Occupation: retired ROS ROS The history of present illness included a review of system, which yielded relevant positives and negatives Exam Vitals: Vital Signs Date Time Temp Pulse Resp B/P (MAP) Pulse Ox O2 Delivery O2 Flow Rate FiO2 08/01/24 13:04 97.8 63 18 128/85 (99) 100 2.0 General: General: Awake and Alert, pale, not acute distress, mildly confused HEENT: Conjunctiva pale, Sclera clear, Mucus Membranes moist. Neck: Supple without masses and tenderness. Resp: Bilateral crackle Heart: Regular Rate and rhythm, normal S1 and S2 Abdomen: Distended, no tenderness Extremities: Bilateral lower extremity edema 2+, chronic hyperpigmentation Skin: Warm and Dry. Neurological: Speech is clear, alert, and oriented x 4 Unable to cooperate for full neurological exam Upper extremity strength 3/5 Lower extremity strength 3/5 Diagnostic Data Last Recorded Lab Results: 08/01/24 1049 08/01/24 1049 Diagnostic Data: Laboratory Tests Test 08/01/24 10:49 Prothrombin Time 11.8 SECONDS (9.0-12.0) INR International Normalized Ratio 1.2 INR Activated Partial Thromboplast Time 31 SECONDS (22-32) Coagulation Comments Additional Plan A 89 years old male with history of CHF, AFib, CVA, coronary artery disease status post stent, CABG, pacemaker presented to the ED due to progressive weakness. Progressive weakness Multifactorial including CHF exacerbation, chronic anemia Coronary artery disease status post stent, CABG, pacemaker in place Elevated troponin 1700 Negative troponin Chest x-ray showed: Cardiomegaly with moderate right and small left pleural effusion Echocardiography is pending Patient scheduled for thoracentesis in [facility] on Sunday IV Lasix 20 daily started, Continue atorvastatin 40 daily, isosorbide mononitrate 120 Hold losartan 40 due to borderline blood pressure today, Patient also had distended abdomen, LFTs not orders, ultrasound of the abdomen and LFT ordered please follow the results Bilateral lower extremity edema Venous Doppler ordered, patient already on Eliquis 2.5 b.i.d. Paroxysmal Atrial fibrillation Rate control, heart rate 70 Continue home medication and Eliquis 2.5 b.i.d. Acute on chronic kidney failure BUN 18, creatinine 1.68 Patient is volume overloaded, IV Lasix started Chronic anemia Microcytic hypochromic anemia Patient is receiving intermittent IV iron infusion Continue monitoring, transfuse if hemoglobin dropped less than seven Dementia, parkinsonism, depression Continue home medication including donepezil, carbidopa levodopa, duloxetine, gabapentin, Code Status: DNR DVT prophylaxis: Eliquis Analgesia/sedation: None Line/tube: Peripheral GI prophylaxis: Protonix Nutrition: Regular Prognosis: Guarded Disposition: Continue monitoring in the floor with telemetry, Calixto Morales MD Internal Medicine Resident Date of Service: August 01, 2024 Billing Provider: SARAH FERGUSON MD Common Visit Codes: 38494-VPBFXYP INP/OBS CARE (HIGH) Secondary Visit Codes: 81123-WQBTXOWN CARE PLAN 30 MINUTES CALIXTO MORALES, ROWAN August 01, 2024 15:43 SARAH FERGUSON MD August 01, 2024 20:22
[2024-08-01 16:37] LABS: ALANINE AMINOTRANSFERASE 12 U/L (12-78); ALBUMIN/GLOBULIN RATIO 0.4 (1.1-1.5); ALKALINE PHOSPHATASE 262 IU/L (46-116); ANION GAP 7 (8-16); ASPARTATE AMINO TRANSFERASE 28 U/L (10-37); BILIRUBIN,TOTAL 0.9 MG/DL (0.1-1.0); BLOOD UREA NITROGEN 18 MG/DL (7-18); CALCIUM 8.4 MG/DL (8.5-10.1); CHLORIDE 106 MMOL/L (99-107); CREATININE 1.64 MG/DL (0.60-1.10); GLUCOSE 147 MG/DL (70-104); POTASSIUM 3.7 MMOL/L (3.5-5.1); SODIUM 141 MMOL/L (135-145); TOTAL CARBON DIOXIDE 28.5 MMOL/L (24-32); TOTAL PROTEIN 6.6 G/DL (6.4-8.2); eCRCL 26 ML/MIN; eGFR 40 ML/MIN
--- NOTE | 2024-08-01 17:07 | CARDIOLOGY REPORT ---
APPROVED REPORT EXAM: Comprehensive 2D, Doppler, and color-flow Echocardiogram. Patient Location: ER RM 12 Blood Pressure: 128/85 mmHg Heart Rate: 71 bpm Indications Congestive Heart Failure HX of Coronary Artery Disease Stents x 2, 2011 HX of CABG X 4 Atrial Fibrillation Hypertension Pacemaker CVA/TIA INSTRUMENT AND CONTROL SERVICE PERSON: Ita Senior MD Previous ECHO: 01/23/24, CVC, EF: 55-60, modLAE; Agustin/MR; mTR; modPleural EF 2D Dimensions LA Diam3.9 cm IVSd 1.1 (0.7-1.1cm) LVDd 4.3 cm PWd 0.8 (0.7-1.1cm) IVSs 1.4 (0.8-1.2cm) LVDs 3.0 (2.5-4.0cm) PWs 1.2 (0.8-1.2cm) LVOT Diameter 1.87 (1.8-2.4cm) LVEF(%) 57.6 (>50%) IVC 17.29 mm FS (%) 30.0 % SV 47.0 ml CO 3.3 L/min M-Mode Dimensions Left Atrium(MM) 3.43 (2.5-4.0cm) Aortic Root 3.01 (2.2-3.7cm) Aortic Cusp Exc 1.41 (1.5-2.0cm) MV EPSS 1.1 (<0.5cm) Aortic Valve AoV Peak Nicolás. 136.6 cm/s AoV VTI 24.4 cm AO Peak GR. 7.5 mmHg AO Mean GR. 4 mmHg LVOT VTI 18.83 cm LVOT Peak Nicolás. 94.2 cm/s SCOT(VTI)/BSA 2.11 cm2/m2 SCOT (VTI) 2.11 cm2 AI P 1/2 Time 700 ms Mitral Valve MV E Velocity 90.7 cm/s MV Peak Gr. 6 mmHg MV DECEL TIME 184 ms MV A Velocity 86.9 cm/s MV PHT 88 ms E/A Ratio 1.0 MVA (PHT) 2.50 cm2 MV RLao697.8 cm/s TDI Lateral E' P. V4.18 cm/s E/Lateral E' 21.7 Pulmonary Valve PAEDP11.39 mmHg Tricuspid Valve TR P. Velocity 326 cm/s RAP ESTIMATE 10 mmHg TR Peak Gr. 43 mmHg RVSP 53 mmHg LEFT VENTRICLE Normal LV size and wall thickness. Overall systolic function is normal. LVEF is 55-60%. RIGHT VENTRICLE Right ventricle is mildly dilated with adequate function. Elevated right heart pressures with an RVSP of 53 mmHg. ATRIA The left atrium size is normal. Pacemaker lead is present in the right heart. AORTIC VALVE Trileaflet AV appears mildly sclerotic without stenosis. Moderate insufficiency. MITRAL VALVE Mitral valve leaflets are mildly thickened with mild annular calcification. No stenosis. Mild regurgi tation. TRICUSPID VALVE The tricuspid valve is normal in structure with moderate regurgitation. PULMONIC VALVE The pulmonary valve is normal in structure with trace insufficiency. GREAT VESSELS The aortic root is normal in size. The ascending aorta is normal in size. The IVC is normal in size a nd collapses >50% with inspiration. PERICARDIUM Normal pericardium. No effusion. Other Information Study Quality: Adequate Conclusion Normal LV size and wall thickness. Overall systolic function is normal. LVEF is 55-60%. Right ventricle is mildly dilated with adequate function. Elevated right heart pressures with an RVS P of 53 mmHg. The left atrium size is normal. Pacemaker lead is present in the right heart. Trileaflet AV appears mildly sclerotic without stenosis. Moderate insufficiency. Mitral valve leaflets are mildly thickened with mild annular calcification. No stenosis. Mild regur gitation. The tricuspid valve is normal in structure with moderate regurgitation. The pulmonary valve is normal in structure with trace insufficiency. Normal pericardium. No effusion.
[2024-08-01 17:23] LABS: % IRON SATURATION 7 % (11-46); IRON 23 UG/DL (53-167); TOTAL IRON BINDING CAPACITY 330 UG/DL (259-388)
--- NOTE | 2024-08-01 18:05 | VASCULAR REPORT ---
EXAM: VASC VL VENOUS Clinical History: Bilateral leg swelling. Comparison: None Technique: Duplex Doppler evaluation of the deep venous systems of both lower extremities from the co mmon femoral veins to the popliteal veins including color Doppler and spectral/pulsed waveform analys is was performed. Findings: RIGHT SIDE: The common femoral vein demonstrates appropriate compressibility and waveform variability . There is compressibility/patency of the great saphenous vein at the proximal thigh . The femoral vein demonstrates appropriate compressibility and waveform variability . The deep femoral vein demonstrates appropriate compressibility and waveform variability . The popliteal vein demonstrates appropriate compressibility and waveform variability . There is color flow at the tibioperoneal trunk and in the posterior tibial vein. LEFT SIDE: The common femoral vein demonstrates appropriate compressibility and waveform variability . There is compressibility/patency of the great saphenous vein at the proximal thigh . The femoral vein demonstrates appropriate compressibility and waveform variability . The deep femoral vein demonstrates appropriate compressibility and waveform variability . The popliteal vein demonstrates appropriate compressibility and waveform variability . There is color flow at the tibioperoneal trunk and in the posterior tibial vein. Impression: 1. No right or left femoropopliteal venous thrombosis. 2. Subcutaneous edema in the bilateral calves.
[2024-08-01 19:11] LABS: BILIRUBIN,URINE NEGATIVE (Neg); CLARITY,URINE CLEAR (Clear); COLOR,URINE YELLOW (Yellow); GLUCOSE, URINE NEGATIVE (Neg); KETONES,URINE NEGATIVE (Neg); LEUKOCYTE ESTERASE ,URINE NEGATIVE (Neg); NITRITES, URINE NEGATIVE (Neg); OCCULT BLOOD,URINE NEGATIVE (Neg); PROTEIN,URINE NEGATIVE (Neg); UROBILINOGEN,URINE 0.2 E.U/dL (0.2-1.0)
[2024-08-01 19:15] VITALS: BP 153/81; PULSE 69; RESP 20; TEMP 97.6; O2SAT 97
[2024-08-01 19:22] LABS: UA COLLECTION TYPE URINAL
[2024-08-01 20:00] VITALS: RESP 20; O2SAT 97
[2024-08-01] MEDS: donepezil 5mg tablet PO SCH (20:28)
[2024-08-01] MEDS: tamsulosin 0.4mg capsule PO SCH (20:28)
[2024-08-01] MEDS: apixaban 2.5mg tablet PO SCH (20:28)
[2024-08-01] MEDS: furosemide 20 MG/2 ML vial IV SCH (20:28)
[2024-08-01] MEDS: duloxetine 30mg CAPSULE.DR PO SCH (20:28)
[2024-08-01] MEDS: FERROUS SULFATE 142 MG TABLET.ER (45mg elemental) PO SCH (20:28)
[2024-08-01 22:00] VITALS: BP 163/75; PULSE 64; RESP 15; TEMP 97.4; O2SAT 98
[2024-08-01 22:33] VITALS: O2SAT 97
[2024-08-02] VITALS (8 sets, daily range): BP systolic 14–166; BP diastolic 45–85; PULSE 64–98; RESP 15–20; TEMP 97.6–98.3; O2SAT 97–99
[2024-08-02 06:55] LABS: BASOPHILS % (AUTO) 0.2 % (0-1); EOSINOPHILS # (AUTO) 0.1 X10'3 (0-0.9); EOSINOPHILS % (AUTO) 1.7 % (0-6); HEMATOCRIT 30.6 % (42.0-52.0); HEMOGLOBIN 9.6 g/dl (14.0-17.9); LYMPHOCYTES # (AUTO) 0.7 X10'3 (1.1-4.8); LYMPHOCYTES % (AUTO) 12.9 % (21-51); MEAN CORPUSCULAR HEMOGLOBIN 22.9 PG (27.0-31.0); MEAN CORPUSCULAR HGB CONC 31.4 g/dL (33.0-36.5); MEAN PLATELET VOLUME 7.4 FL (7.4-10.4); MONOCYTES # (AUTO) 0.6 X10'3 (0-0.9); MONOCYTES % (AUTO) 10.6 % (2-12); NEUTROPHILS # (AUTO) 4.2 X10'3 (1.8-7.7); NEUTROPHILS % (AUTO) 74.6 % (42-75); PLATELET COUNT 176 X10'3 (140-440); RED BLOOD COUNT 4.19 X10'6 (4.70-6.10); RED CELL DISTRIBUTION WIDTH 19.8 % (11.5-14.5); WHITE BLOOD COUNT 5.7 X10'3 (4.5-11.0)
[2024-08-02 07:26] LABS: ANION GAP 5 (8-16); BLOOD UREA NITROGEN 18 MG/DL (7-18); BUN/CREATININE RATIO 11.5 (10.0-20.0); CALCIUM 8.4 MG/DL (8.5-10.1); CHLORIDE 107 MMOL/L (99-107); CREATININE 1.57 MG/DL (0.60-1.10); GLUCOSE 111 MG/DL (70-104); SODIUM 141 MMOL/L (135-145); TOTAL CARBON DIOXIDE 28.9 MMOL/L (24-32); eCRCL 27 ML/MIN; eGFR 42 ML/MIN
--- NOTE | 2024-08-02 07:41 | RADIOLOGY REPORT ---
EXAM: US Abdomen Limited, Right Upper Quadrant CLINICAL INDICATION: Distended abdomen TECHNIQUE: Real-time ultrasound of the right upper quadrant with image documentation. COMPARISON: US ULTRASOUND OF ABDOMEN on DOS: 04/30/23 FINDINGS: LIVER: Liver measures to 12.12 cm. No intrahepatic bile duct dilation. GALLBLADDER: Cholecystectomy. COMMON BILE DUCT: Unremarkable as visualized. No stones. No dilation. Common bile duct measures 0.35 cm in diameter. PANCREAS: Unremarkable as visualized. RIGHT KIDNEY: Unremarkable. No stones. No hydronephrosis. The right kidney measures 9.3 x 4.6 x 5.1 cm. FREE FLUID: Ascites. OTHER FINDINGS: . . . IMPRESSION: Ascites.
[2024-08-02] MEDS: gabapentin 100mg capsule PO SCH (07:55)
[2024-08-02] MEDS: pantoprazole 40mg Tablet.DR PO SCH (07:55)
[2024-08-02] MEDS: atorvastatin 20mg tablet PO SCH (07:55)
[2024-08-02] MEDS: isosorbide mononitrate 30mg tab.SR.24H PO SCH (07:55)
[2024-08-02] MEDS ORDERED: furosemide 20 MG/2 ML vial IV SCH (08:00)
[2024-08-02 08:25] LABS: HEMOGLOBIN A1C 6.2 % (4.5-6.2)
--- NOTE | 2024-08-02 11:39 | PROGRESS NOTE ---
Daily Progress Note Providers to CC No new complaint today resting comfortably in the bed ~ Central Line/PICC still needed: No Germain-Non Protocol Germain Indications Met/Not Met: F/C Indications Not Met Antibiotic Timeout Antibiotic Ordered?: Yes MRSA Education MRSA Education Provided to pt: Yes Subjective As above Objective Vital Signs Date Time Temp Pulse Resp B/P (MAP) Pulse Ox O2 Delivery O2 Flow Rate FiO2 08/02/24 11:00 97.6 66 18 119/45 (69) 97 Nasal Cannula 2.0 97 Vital signs, stable ,afebrile. Pulse Oximetry reflects adequate oxygenation 2 L oxygen nasal cannula General: well developed, well nourished. Awake , alert, and oriented x4, resting comfortably in the bed, in no acute distress . Skin: Warm, dry, no pallor, no rash or petechiae. HEENT: Atraumatic, normocephalic, EOMI, anicteric sclera B; pink conjunctiva; PERRLA, normal oropharynx, moist oral and nasal mucosa. Tympanic membrane , nose , throat clear. Neck: Trachea midline. Supple, full range of motion, no JVD, bruit , hepatojugular reflex , lymphadenopathy or masses, or other lesions Cardiac: Regular rhythm, regular rate no murmurs, rubs, or gallops. Normal S1 and S2, no S3 noticed. PMI is normal. Respiratory: Equal breath sounds bilaterally, no tachypnea; lungs clear to auscultation bilaterally, no wheezing ,rub or rales, or crackles. Chest wall is symmetric and without deformity. No signs of trauma. Chest wall is nontender. No signs of respiratory distress. Resonance is normal upon percussion bilaterally. Gastrointestinal: Abdomen symmetric, non-distended, soft, non-tender, normal bowel sounds x4 quadrant, normoactive, no hepatosplenomegaly , no masses , no bruit, no flank pain bilaterally. No voluntary guarding, rebound, or rigidity. No tenderness to percussion. No pulsatile masses. Equal femoral pulses. No Santizo's sign or McBurney point tenderness. Back; no CVA tenderness bilaterally, no deformities. Neck and back are without deformity as well. No tenderness noted on palpation of the spinous processes. Spinous processes are midline. Cervical, thoracic, and lumbar paraspinal muscles are not tender and are without spasm. : normal external genitalia, without lesions, swelling, masses or tenderness. Musculoskeletal: Extremities, normal range of motion, non-tender, muscle strength 5/5 x 4. Negative Homans signs bilaterally on lower extremity. Distal pulses full symmetrical, no clubbing, cyanosis , edema. Neurological: Speech is clear, alert, and oriented x 4. No motor or sensory deficit, deep tendon reflexes normal, cerebellar intact. Cranial nerves II-XII intact. Psych: Alert and or appropriate, normal affect. Vascular: Good distal pulses, which are equal x4; capillary refill less than 2 seconds. Lymphatic, no lymphadenopathy. Result Diagram: 08/02/24 0634 08/02/24 0634 Coagulation Studies Laboratory Tests Test 08/01/24 10:49 Prothrombin Time 11.8 SECONDS (9.0-12.0) INR International Normalized Ratio 1.2 INR Activated Partial Thromboplast Time 31 SECONDS (22-32) Coagulation Comments Problem\Assessment\Plan Plan A 89 years old male with history of CHF, AFib, CVA, coronary artery disease status post stent, CABG, pacemaker presented to the ED due to progressive weakness. Progressive weakness Multifactorial including CHF exacerbation, chronic anemia Coronary artery disease status post stent, CABG, pacemaker in place Elevated troponin 1700 Negative troponin Chest x-ray showed: Cardiomegaly with moderate right and small left pleural effusion Echocardiography is pending Patient scheduled for thoracentesis in [facility] on Sunday; ICU Dr. Burch, consultation pending for pleural tap IV Lasix 20 daily started, Continue atorvastatin 40 daily, isosorbide mononitrate 120 Hold losartan 40 due to borderline blood pressure today, Patient also had distended abdomen, LFTs not orders, ultrasound of the abdomen and LFT ordered please follow the results Bilateral lower extremity edema Venous Doppler ordered, patient already on Eliquis 2.5 b.i.d. Paroxysmal Atrial fibrillation Rate control, heart rate 70 Continue home medication and Eliquis 2.5 b.i.d. Acute on chronic kidney failure BUN 18, creatinine 1.68 Patient is volume overloaded, IV Lasix started Chronic anemia Microcytic hypochromic anemia Patient is receiving intermittent IV iron infusion Continue monitoring, transfuse if hemoglobin dropped less than seven Dementia, parkinsonism, depression Continue home medication including donepezil, carbidopa levodopa, duloxetine, gabapentin, Code Status: DNR DVT prophylaxis: Eliquis Analgesia/sedation: None Line/tube: Peripheral GI prophylaxis: Protonix Nutrition: Regular Prognosis: Guarded Sepsis Screening Reassessment Date: August 02, 2024 Date of Service: August 02, 2024 Billing Provider: BETH CHAND MD Common Visit Codes: [id number] INP/OBS CARE(HIGH) BETH CHAND MD August 02, 2024 11:39
[2024-08-02] MEDS: acetaminophen 325mg tablet PO PRN (20:16)
[2024-08-03] VITALS (10 sets, daily range): BP systolic 142–185; BP diastolic 64–91; PULSE 64–104; RESP 17–18; TEMP 97.4–98.7; O2SAT 97–100
[2024-08-03 06:37] LABS: BASOPHILS % (AUTO) 0.2 % (0-1); EOSINOPHILS # (AUTO) 0.1 X10'3 (0-0.9); EOSINOPHILS % (AUTO) 1.6 % (0-6); HEMATOCRIT 30.6 % (42.0-52.0); HEMOGLOBIN 9.2 g/dl (14.0-17.9); LYMPHOCYTES % (AUTO) 17.2 % (21-51); MEAN CORPUSCULAR HEMOGLOBIN 22.1 PG (27.0-31.0); MEAN CORPUSCULAR HGB CONC 30.2 g/dL (33.0-36.5); MEAN CORPUSCULAR VOLUME 73.1 FL (78-98); MEAN PLATELET VOLUME 7.3 FL (7.4-10.4); MONOCYTES # (AUTO) 0.6 X10'3 (0-0.9); NEUTROPHILS # (AUTO) 4.1 X10'3 (1.8-7.7); PLATELET COUNT 175 X10'3 (140-440); RED BLOOD COUNT 4.18 X10'6 (4.70-6.10); RED CELL DISTRIBUTION WIDTH 19.5 % (11.5-14.5); WHITE BLOOD COUNT 5.7 X10'3 (4.5-11.0)
[2024-08-03 06:46] LABS: ALBUMIN 1.9 G/DL (3.4-5.0); ANION GAP 2 (8-16); BLOOD UREA NITROGEN 18 MG/DL (7-18); BUN/CREATININE RATIO 11.4 (10.0-20.0); CALCIUM 8.5 MG/DL (8.5-10.1); CHLORIDE 105 MMOL/L (99-107); CREATININE 1.58 MG/DL (0.60-1.10); GLUCOSE 102 MG/DL (70-104); POTASSIUM 3.9 MMOL/L (3.5-5.1); SODIUM 140 MMOL/L (135-145); TOTAL CARBON DIOXIDE 32.7 MMOL/L (24-32); eCRCL 27 ML/MIN; eGFR 42 ML/MIN
[2024-08-03 07:09] LABS: ANISOCYTOSIS 2+; MICROCYTOSIS 1+; PLATELET ESTIMATE NORMAL; POIKILOCYTOSIS FEW
[2024-08-03] MEDS: losartan 25mg tablet PO SCH (12:34)
--- NOTE | 2024-08-03 16:17 | PROGRESS NOTE ---
Daily Progress Note Providers to CC ~ no new complaint today, resting comfortably in the bed Central Line/PICC still needed: No Germain-Non Protocol Germain Indications Met/Not Met: F/C Indications Not Met Antibiotic Timeout Antibiotic Ordered?: No Subjective As above Objective Vital Signs Date Time Temp Pulse Resp B/P (MAP) Pulse Ox O2 Delivery O2 Flow Rate FiO2 08/03/24 12:34 97 08/03/24 11:00 97.8 17 162/64 (96) 99 Nasal Cannula 2.0 08/02/24 15:00 98 Vital signs, stable ,afebrile. Pulse Oximetry reflects adequate oxygenatio on 2 L oxygen nasal cannula General: well developed, well nourished. Awake , alert, and oriented x4, resting comfortably in the bed, in no acute distress . Skin: Warm, dry, no pallor, no rash or petechiae. HEENT: Atraumatic, normocephalic, EOMI, anicteric sclera B; pink conjunctiva; PERRLA, normal oropharynx, moist oral and nasal mucosa. Tympanic membrane , nose , throat clear. Neck: Trachea midline. Supple, full range of motion, no JVD, bruit , hepatojugular reflex , lymphadenopathy or masses, or other lesions Cardiac: Regular rhythm, regular rate no murmurs, rubs, or gallops. Normal S1 and S2, no S3 noticed. PMI is normal. Respiratory: Equal breath sounds bilaterally, no tachypnea; lungs clear to auscultation bilaterally, no wheezing ,rub or rales, or crackles. Chest wall is symmetric and without deformity. No signs of trauma. Chest wall is nontender. No signs of respiratory distress. Resonance is normal upon percussion bilaterally. Gastrointestinal: Abdomen symmetric, non-distended, soft, non-tender, normal bowel sounds x4 quadrant, normoactive, no hepatosplenomegaly , no masses , no bruit, no flank pain bilaterally. No voluntary guarding, rebound, or rigidity. No tenderness to percussion. No pulsatile masses. Equal femoral pulses. No Santizo's sign or McBurney point tenderness. Back; no CVA tenderness bilaterally, no deformities. Neck and back are without deformity as well. No tenderness noted on palpation of the spinous processes. Spinous processes are midline. Cervical, thoracic, and lumbar paraspinal muscles are not tender and are without spasm. : normal external genitalia, without lesions, swelling, masses or tenderness. Musculoskeletal: Extremities, normal range of motion, non-tender, muscle strength 5/5 x 4. Negative Homans signs bilaterally on lower extremity. Distal pulses full symmetrical, no clubbing, cyanosis , edema. Neurological: Speech is clear, alert, and oriented x 4. No motor or sensory deficit, deep tendon reflexes normal, cerebellar intact. Cranial nerves II-XII intact. Psych: Alert and or appropriate, normal affect. Vascular: Good distal pulses, which are equal x4; capillary refill less than 2 seconds. Lymphatic, no lymphadenopathy. Result Diagram: 08/03/24 0540 08/03/24 0540 Coagulation Studies Laboratory Tests Test 08/01/24 10:49 Prothrombin Time 11.8 SECONDS (9.0-12.0) INR International Normalized Ratio 1.2 INR Activated Partial Thromboplast Time 31 SECONDS (22-32) Coagulation Comments Problem\Assessment\Plan Plan A 89 years old male with history of CHF, AFib, CVA, coronary artery disease status post stent, CABG, pacemaker presented to the ED due to progressive weakness. Progressive weakness Multifactorial including CHF exacerbation, chronic anemia Ascites secondary to above Coronary artery disease status post stent, CABG, pacemaker in place Chest x-ray showed: Cardiomegaly with moderate right and small left pleural effusion Echocardiography is pending Patient scheduled for thoracentesis in [facility] on Sunday; ICU Dr. Burch, consultation pending for pleural tap, awaiting consultation IV Lasix 20 daily started, Continue atorvastatin 40 daily, isosorbide mononitrate 120 Hold losartan 40 due to borderline blood pressure today, Patient also had distended abdomen, LFTs not orders, ultrasound of the abdomen and LFT ordered please follow the results Bilateral lower extremity edema Venous Doppler ordered, patient already on Eliquis 2.5 b.i.d. Paroxysmal Atrial fibrillation Rate control, heart rate 70 Continue home medication and Eliquis 2.5 b.i.d. Acute on chronic kidney failure BUN 18, creatinine 1.68 Patient is volume overloaded, IV Lasix started Chronic anemia Microcytic hypochromic anemia Patient is receiving intermittent IV iron infusion Continue monitoring, transfuse if hemoglobin dropped less than seven Dementia, parkinsonism, depression Continue home medication including donepezil, carbidopa levodopa, duloxetine, gabapentin, Code Status: DNR DVT prophylaxis: Eliquis Analgesia/sedation: None Line/tube: Peripheral GI prophylaxis: Protonix Nutrition: Regular Prognosis: Guarded Sepsis Screening Reassessment Date: August 03, 2024 Date of Service: August 03, 2024 Billing Provider: BETH CHAND MD Common Visit Codes: [id number] INP/OBS CARE(HIGH) BETH CHAND MD August 03, 2024 16:17
[2024-08-03] MEDS: hydrALAZINE 20mg/ml inj. IV PRN (19:51)
[2024-08-04] VITALS (11 sets, daily range): BP systolic 89–168; BP diastolic 54–73; PULSE 60–100; RESP 14–20; TEMP 97–98; O2SAT 91–100
[2024-08-04 08:18] LABS: BASOPHILS % (AUTO) 0.2 % (0-1); EOSINOPHILS # (AUTO) 0.1 X10'3 (0-0.9); HEMATOCRIT 31.9 % (42.0-52.0); HEMOGLOBIN 9.8 g/dl (14.0-17.9); LYMPHOCYTES # (AUTO) 0.8 X10'3 (1.1-4.8); LYMPHOCYTES % (AUTO) 13.1 % (21-51); MEAN CORPUSCULAR HEMOGLOBIN 22.4 PG (27.0-31.0); MEAN CORPUSCULAR HGB CONC 30.6 g/dL (33.0-36.5); MEAN CORPUSCULAR VOLUME 73.3 FL (78-98); MEAN PLATELET VOLUME 7.5 FL (7.4-10.4); MONOCYTES # (AUTO) 0.6 X10'3 (0-0.9); MONOCYTES % (AUTO) 9.8 % (2-12); NEUTROPHILS # (AUTO) 4.7 X10'3 (1.8-7.7); NEUTROPHILS % (AUTO) 74.9 % (42-75); PLATELET COUNT 170 X10'3 (140-440); RED BLOOD COUNT 4.36 X10'6 (4.70-6.10); RED CELL DISTRIBUTION WIDTH 19.8 % (11.5-14.5); WHITE BLOOD COUNT 6.2 X10'3 (4.5-11.0)
[2024-08-04 08:37] LABS: ANION GAP 5 (8-16); BLOOD UREA NITROGEN 20 MG/DL (7-18); BUN/CREATININE RATIO 13.6 (10.0-20.0); CALCIUM 8.4 MG/DL (8.5-10.1); CHLORIDE 105 MMOL/L (99-107); CREATININE 1.47 MG/DL (0.60-1.10); GLUCOSE 115 MG/DL (70-104); POTASSIUM 3.6 MMOL/L (3.5-5.1); SODIUM 142 MMOL/L (135-145); TOTAL CARBON DIOXIDE 31.9 MMOL/L (24-32); eCRCL 29 ML/MIN; eGFR 45 ML/MIN
--- NOTE | 2024-08-04 13:52 | RADIOLOGY REPORT ---
EXAM: DI CHEST,SINGLE VIEW REASON FOR EXAM: s/p thoracentesis, rule out pneumothorax TECHNIQUE: 1 view of the chest COMPARISON: DI CHEST,SINGLE VIEW on DOS: 08/01/24 FINDINGS/IMPRESSION: LUNGS: Small immediately left-sided pleural effusion. Trace residual right pleural effusion. No inte rval pneumothorax. MEDIASTINUM: Normal cardiac size. Left anterior chest cardiac device. Postop changes to the chest. BONES: No acute osseous abnormality OTHER: None
[2024-08-04 14:04] LABS: BFSOURCE RIGHT PLEURAL FLD
[2024-08-04 14:05] LABS: GLUCOSE,BODY FLUID 155 MG/DL; LDH,BODY FLUID 145 U/L; TOTAL PROTEIN,BODY FLUID 3.4 G/DL
[2024-08-04 14:50] LABS: BFSOURCE RIGHT PLEURAL FLD
[2024-08-04 14:51] LABS: BF RBC COUNT 65500 /CU MM; BF WBC COUNT 2900 /CU MM (0-1000); BFAPPEAR BLOODY; BFCOLOR RED; BFVOLUME 55 ML; EOSINOPHILS,BODY FLUID 1 %; LYMPHOCYTES,BODY FLUID 69 %; MONOCYTES,BODY FLUID 16 %; NEUTROPHILS,BODY FLUID 14 %
--- NOTE | 2024-08-04 14:51 | RADIOLOGY REPORT ---
PROCEDURE: ULTRASOUND GUIDED THORACENTESIS USING TEMPORARY CATHETER HISTORY: 89 Female with sob requiring thoracentesis. DOCUMENTATION: Informed consent was obtained and a procedural time out was performed. TECHNIQUE: Right pleural effusions appear moderate. 2.1 L drained from the right side. FINDINGS: Bilateral pleural effusions appear moderate. 2.1 L drained from the right side. IMPRESSION: SUCCESSFUL ULTRASOUND GUIDED THORACENTESIS. Procedure by Dr. Motnerroso
[2024-08-04 14:52] LABS: BF MESOTHELIAL CELLS FEW
[2024-08-04] MEDS ORDERED: FURO-150 PO (14:57)
[2024-08-04] MEDS ORDERED: AZEL137S4 BOTHNARES (14:57)
[2024-08-04] MEDS ORDERED: POTA5TAB PO (14:57)
[2024-08-04] MEDS ORDERED: GABA-530 PO (14:57)
[2024-08-04] MEDS ORDERED: DICL100G60 TOP (14:57)
[2024-08-04] MEDS ORDERED: CYCL1DRO RIGHTEYE (15:01)
[2024-08-04] MEDS ORDERED: CYCL1DRO LEFTEYE (15:01)
[2024-08-04] MEDS ORDERED: morphine 4 MG/ML inj SYRINge IV PRN (15:05)
[2024-08-04] MEDS ORDERED: morphine 2 MG/ML inj. syringe IV PRN (15:05)
[2024-08-04] MEDS: carbidoba-levodopa 25-100mg tablet PO SCH (17:47)
--- NOTE | 2024-08-04 18:52 | PROGRESS NOTE ---
Daily Progress Note Providers to CC ~ no new complaint today, resting comfortably in the bed Central Line/PICC still needed: No Germain-Non Protocol Germain Indications Met/Not Met: F/C Indications Not Met Antibiotic Timeout Antibiotic Ordered?: Yes MRSA Education MRSA Education Provided to pt: Yes Subjective As above Objective Vital Signs Date Time Temp Pulse Resp B/P (MAP) Pulse Ox O2 Delivery O2 Flow Rate FiO2 08/04/24 16:46 136 08/04/24 15:00 97.4 14 94/55 (68) 97 Room Air 08/04/24 08:02 08/04/24 05:22 N/A Vital signs, stable ,afebrile. Pulse Oximetry reflects adequate oxygenation. General: well developed, well nourished. Awake , alert, and oriented x4, resting comfortably in the bed, in no acute distress . Skin: Warm, dry, no pallor, no rash or petechiae. HEENT: Atraumatic, normocephalic, EOMI, anicteric sclera B; pink conjunctiva; PERRLA, normal oropharynx, moist oral and nasal mucosa. Tympanic membrane , nose , throat clear. Neck: Trachea midline. Supple, full range of motion, no JVD, bruit , hepatojugular reflex , lymphadenopathy or masses, or other lesions Cardiac: Regular rhythm, regular rate no murmurs, rubs, or gallops. Normal S1 and S2, no S3 noticed. PMI is normal. Respiratory: Equal breath sounds bilaterally, no tachypnea; lungs clear to auscultation bilaterally, no wheezing ,rub or rales, or crackles. Chest wall is symmetric and without deformity. No signs of trauma. Chest wall is nontender. No signs of respiratory distress. Resonance is normal upon percussion bilaterally. Gastrointestinal: Abdomen symmetric, non-distended, soft, non-tender, normal bowel sounds x4 quadrant, normoactive, no hepatosplenomegaly , no masses , no bruit, no flank pain bilaterally. No voluntary guarding, rebound, or rigidity. No tenderness to percussion. No pulsatile masses. Equal femoral pulses. No Santizo's sign or McBurney point tenderness. Back; no CVA tenderness bilaterally, no deformities. Neck and back are without deformity as well. No tenderness noted on palpation of the spinous processes. Spinous processes are midline. Cervical, thoracic, and lumbar paraspinal muscles are not tender and are without spasm. : normal external genitalia, without lesions, swelling, masses or tenderness. Musculoskeletal: Extremities, normal range of motion, non-tender, muscle strength 5/5 x 4. Negative Homans signs bilaterally on lower extremity. Distal pulses full symmetrical, no clubbing, cyanosis , edema. Neurological: Speech is clear, alert, and oriented x 4. No motor or sensory deficit, deep tendon reflexes normal, cerebellar intact. Cranial nerves II-XII intact. Psych: Alert and or appropriate, normal affect. Vascular: Good distal pulses, which are equal x4; capillary refill less than 2 seconds. Lymphatic, no lymphadenopathy. Result Diagram: 08/04/24 0735 08/04/24 0735 Coagulation Studies Laboratory Tests Test 08/01/24 10:49 Prothrombin Time 11.8 SECONDS (9.0-12.0) INR International Normalized Ratio 1.2 INR Activated Partial Thromboplast Time 31 SECONDS (22-32) Coagulation Comments Problem\Assessment\Plan Assessment/ Plan A 89 years old male with history of CHF, AFib, CVA, coronary artery disease status post stent, CABG, pacemaker presented to the ED due to progressive weakness. Progressive weakness Multifactorial including CHF exacerbation, chronic anemia Ascites secondary to above Coronary artery disease status post stent, CABG, pacemaker in place Chest x-ray showed: Cardiomegaly with moderate right and small left pleural effusion Echocardiography is pending Patient scheduled for thoracentesis in [facility] on Sunday; ICU Dr. Burch, consultation pending for pleural tap, hopefully today IV Lasix 20 daily started, Continue atorvastatin 40 daily, isosorbide mononitrate 120 Hold losartan 40 due to borderline blood pressure today, Patient also had distended abdomen, LFTs not orders, ultrasound of the abdomen and LFT ordered please follow the results Bilateral lower extremity edema Venous Doppler ordered, patient already on Eliquis 2.5 b.i.d. Paroxysmal Atrial fibrillation Rate control, heart rate 70 Continue home medication and Eliquis 2.5 b.i.d. Acute on chronic kidney failure BUN 18, creatinine 1.68 Patient is volume overloaded, IV Lasix started Chronic anemia Microcytic hypochromic anemia Patient is receiving intermittent IV iron infusion Continue monitoring, transfuse if hemoglobin dropped less than seven Dementia, parkinsonism, depression Continue home medication including donepezil, carbidopa levodopa, duloxetine, gabapentin, Code Status: DNR DVT prophylaxis: Eliquis Analgesia/sedation: None Line/tube: Peripheral GI prophylaxis: Protonix Nutrition: Regular Prognosis: Guarded Sepsis Screening Reassessment Date: August 04, 2024 Date of Service: August 04, 2024 Billing Provider: BETH CHAND MD Common Visit Codes: [id number] INP/OBS CARE(HIGH) BETH CHAND MD August 04, 2024 18:52
[2024-08-04] MEDS ORDERED: non-formulary drug (Vit C/E/Zn/Coppr/Lutein/Zeaxan (Preservision Areds 2 Softgel) 1 CAP) PO SCH (20:00)
[2024-08-04] MEDS: baclofen 10mg tablet PO SCH (20:21)
[2024-08-04] MEDS ORDERED: non-formulary drug (Atorvastatin Calcium* (Lipitor*) 1 TAB) PO SCH (21:00)
[2024-08-05 02:00] VITALS: BP 155/64; PULSE 63; RESP 20; TEMP 97.2; O2SAT 93
[2024-08-05 06:00] VITALS: BP 161/60; PULSE 65; RESP 13; TEMP 97.2; O2SAT 93
[2024-08-05 06:22] LABS: BASOPHILS % (AUTO) 0.1 % (0-1); EOSINOPHILS # (AUTO) 0.1 X10'3 (0-0.9); EOSINOPHILS % (AUTO) 1.2 % (0-6); HEMATOCRIT 32.7 % (42.0-52.0); HEMOGLOBIN 10.3 g/dl (14.0-17.9); LYMPHOCYTES # (AUTO) 0.8 X10'3 (1.1-4.8); LYMPHOCYTES % (AUTO) 10.3 % (21-51); MEAN CORPUSCULAR HEMOGLOBIN 22.8 PG (27.0-31.0); MEAN CORPUSCULAR HGB CONC 31.5 g/dL (33.0-36.5); MEAN CORPUSCULAR VOLUME 72.3 FL (78-98); MEAN PLATELET VOLUME 7.4 FL (7.4-10.4); MONOCYTES # (AUTO) 0.8 X10'3 (0-0.9); NEUTROPHILS % (AUTO) 77.4 % (42-75); PLATELET COUNT 179 X10'3 (140-440); RED BLOOD COUNT 4.52 X10'6 (4.70-6.10); RED CELL DISTRIBUTION WIDTH 19.9 % (11.5-14.5); WHITE BLOOD COUNT 7.7 X10'3 (4.5-11.0)
[2024-08-05 06:25] LABS: ALBUMIN 1.9 G/DL (3.4-5.0); ANION GAP 4 (8-16); BLOOD UREA NITROGEN 20 MG/DL (7-18); BUN/CREATININE RATIO 13.4 (10.0-20.0); CALCIUM 8.4 MG/DL (8.5-10.1); CHLORIDE 104 MMOL/L (99-107); CREATININE 1.49 MG/DL (0.60-1.10); GLUCOSE 118 MG/DL (70-104); POTASSIUM 3.4 MMOL/L (3.5-5.1); SODIUM 140 MMOL/L (135-145); TOTAL CARBON DIOXIDE 31.6 MMOL/L (24-32); eCRCL 28 ML/MIN; eGFR 44 ML/MIN
[2024-08-05] MEDS ORDERED: magnesium sulf-water 4G/100mL 100 ML IV PRN (07:20)
[2024-08-05] MEDS ORDERED: magnesium Cl slow-release 64mg tablet PO PRN (07:20)
[2024-08-05] MEDS ORDERED: potassium Cl 20 mEq SR tablet PO PRN (07:20)
[2024-08-05] MEDS ORDERED: potassium Cl 40MEQ/1/2NS 520ml 520 ML IV PRN (07:20)
[2024-08-05] MEDS ORDERED: magnesium sulf-water 2g/50mL 50 ML IV PRN (07:20)
[2024-08-05 08:00] VITALS: RESP 13; O2SAT 93
[2024-08-05] MEDS: potassium Cl 20 mEq SR tablet PO PRN (08:51)
[2024-08-05 11:00] VITALS: BP 108/50; PULSE 65; RESP 17; TEMP 97.9; O2SAT 92
[2024-08-05 15:00] VITALS: BP 120/66; PULSE 93; RESP 21; TEMP 97.8; O2SAT 91
[2024-08-05 16:25] VITALS: RESP 16; O2SAT 95
--- NOTE | 2024-08-05 19:53 | DISCHARGE SUMMARY ---
Discharge Summary Providers to CC ~ no new complaint today ready to be transferred to rehab facility Discharge Summary Assessment Coronary artery disease status post PTCA stent, status post CABG, Atrial fibrillation CHF preserved ejection fraction in exacerbation Status post bilateral pleural tap yesterday pacemaker status non ST-elevation FL type 2 Bilateral pleural effusions Hyperlipidemia Hypertension chronic kidney disease Anemia Dementia, parkinsonism, depression Admission Diagnosis: CHF , B/L pleural effusion , anemia Admission Diagnosis Comment: Coronary artery disease status post PTCA stent, status post CABG, Atrial fibrillation CHF preserved ejection fraction in exacerbation Status post bilateral pleural tap yesterday pacemaker status non ST-elevation FL type 2 Bilateral pleural effusions Hyperlipidemia Hypertension chronic kidney disease Anemia Dementia, parkinsonism, depression Hospital Course DATE OF ADMISSION: August 01, 2024 DATE OF DISCHARGE: August 0508/2024 Discharge Diagnosis\Comment: Coronary artery disease status post PTCA stent, status post CABG, Atrial fibrillation CHF preserved ejection fraction in exacerbation Status post bilateral pleural tap yesterday pacemaker status non ST-elevation FL type 2 Bilateral pleural effusions Hyperlipidemia Hypertension chronic kidney disease Anemia Dementia, parkinsonism, depression Operations\Procedures: Bilateral pleural tap, thoracocentesis Consultants: ICU Complications: None Condition on DC: Stable Discharge Summary: A 89 years old male with history of CHF, AFib, CVA, coronary artery disease status post stent, CABG, pacemaker, chronic anemia presented to the ED due to progressive weakness. Most of the information gathered from his and medical staff and previous charting.Patient had progressive weakness waiting couple of weeks. Patient had history of multiple thoracentesis in the past due to dyspnea and next appointment is next Sunday. Patient also has history of AFib and on Eliquis. He denied chest pain, tightness, cough, fever chills. Patient denied any hematemesis, melena or any changing in bowel habits. Primary care doctor is Dr. El and farm equipment operator is Dr. Senior, after admission patient was extensively evaluated treated, today he feels better ready to be transferred in stable condition to rehab facility, medication reconciled, follow-up PCP in the morning, today on physical exam Vital signs, stable ,afebrile. Pulse Oximetry reflects adequate oxygenation. General: well developed, well nourished. Awake , alert, and oriented x4, resting comfortably in the bed, in no acute distress . Skin: Warm, dry, no pallor, no rash or petechiae. HEENT: Atraumatic, normocephalic, EOMI, anicteric sclera B; pink conjunctiva; PERRLA, normal oropharynx, moist oral and nasal mucosa. Tympanic membrane , nose , throat clear. Neck: Trachea midline. Supple, full range of motion, no JVD, bruit , hepatojugular reflex , lymphadenopathy or masses, or other lesions Cardiac: Regular rhythm, regular rate no murmurs, rubs, or gallops. Normal S1 and S2, no S3 noticed. PMI is normal. Respiratory: Equal breath sounds bilaterally, no tachypnea; lungs clear to auscultation bilaterally, no wheezing ,rub or rales, or crackles. Chest wall is symmetric and without deformity. No signs of trauma. Chest wall is nontender. No signs of respiratory distress. Resonance is normal upon percussion bilaterally. Gastrointestinal: Abdomen symmetric, non-distended, soft, non-tender, normal bowel sounds x4 quadrant, normoactive, no hepatosplenomegaly , no masses , no bruit, no flank pain bilaterally. No voluntary guarding, rebound, or rigidity. No tenderness to percussion. No pulsatile masses. Equal femoral pulses. No Santizo's sign or McBurney point tenderness. Back; no CVA tenderness bilaterally, no deformities. Neck and back are without deformity as well. No tenderness noted on palpation of the spinous processes. Spinous processes are midline. Cervical, thoracic, and lumbar paraspinal muscles are not tender and are without spasm. : normal external genitalia, without lesions, swelling, masses or tenderness. Musculoskeletal: Extremities, normal range of motion, non-tender, muscle strength 5/5 x 4. Negative Homans signs bilaterally on lower extremity. Distal pulses full symmetrical, no clubbing, cyanosis , edema. Neurological: Speech is clear, alert, and oriented x 4. No motor or sensory deficit, deep tendon reflexes normal, cerebellar intact. Cranial nerves II-XII intact. Psych: Alert and or appropriate, normal affect. Vascular: Good distal pulses, which are equal x4; capillary refill less than 2 seconds. Lymphatic, no lymphadenopathy. *Problems/Diagnosis: (1) Hyperlipidemia Status: Chronic (2) CAD Status: Chronic (3) CHF exacerbation Status: Acute (4) Parkinson disease Status: Acute Total Time Spent on D/C: > 30 Minutes Date of Service: August 05, 2024 Billing Provider: BETH CHAND MD Common Visit Codes: [id number] DISCH DAY >30min Problem Qualifiers (1) CHF exacerbation: Qualified Codes: I50.9 - Heart failure, unspecified (2) Parkinson disease: Qualified Codes: G20.A1 - Parkinson's disease without dyskinesia, without mention of fluctuations BETH CHAND MD August 05, 2024 19:53
--- NOTE | 2024-08-06 23:56 | CONSULTATION REPORT ---
Consult Providers to CC ~ History of Present Illness Reason for Admit\Complaint: Dyspnea,generalizwd weekness History of Present Illness A 89 years old male with history of CHF, AFib, CVA, coronary artery disease status post stent, CABG, pacemaker, chronic anemia presented to the ED due to progressive weakness. Most of the information gathered from his and medical staff and previous charting. Patient had progressive weakness waiting couple of weeks. Patient had history of multiple thoracentesis in the past due to dyspnea and next appointment is next Sunday. Patient also has history of AFib and on Eliquis. He denied chest pain, tightness, cough, fever chills. Pulmonary services are consulted for thoracentesis Allergies: Coded Allergies: No Known Allergies (Unverified , 08/01/24) Home Medications Home Medications Active Reported Restasis (Cyclosporine) 0.05 % Droperette 1 Drop RIGHTEYE Q12H 30 Days Restasis (Cyclosporine) 0.05 % Droperette 1 Drop LEFTEYE Q12H 30 Days Potassium Citrate 5 Meq (540 Mg) Tablet.sa 1 Tab PO TID 30 Days Lasix (Furosemide) 20 Mg Tablet 1 Tab PO DAILY 30 Days Arthritis Pain (Diclofenac Sodium) 1 % Gel..gram. 1 Applic TOP HS Azelastine HCl 137 Mcg (0.1 %) Hansen.pump 2 Sprays BOTHNARES Q12H 30 Days Gabapentin 100 Mg Capsule 3 Cap PO HS 30 Days Preservision Areds 2 Softgel (Vit C/E/Zn/Coppr/Lutein/Zeaxan) 250MG-90MG Capsule 1 Cap PO Q12H 30 Days Valsartan 40 Mg Tablet 1 Tab PO DAILY Flomax* (Tamsulosin HCl) 0.4 Mg Cap.sr.24h 1 Cap PO HS Duloxetine HCl 30 Mg Capsule.dr 1 Cap PO HS Gabapentin 100 Mg Capsule 1 Cap PO DAILY 30 Days Vitamin D3 (Cholecalciferol (Vitamin D3)) 1,250 Mcg (20288 Unit) Capsule 1 Cap PO Q7D 28 Days PROTONIX tablet (Pantoprazole Sodium) 40 Mg Tablet.dr 1 Tab PO DAILY 30 Days Carbidopa-Levodopa 25-100 Tab (Carbidopa/Levodopa) 25 Mg-100 Mg Tablet 2 Each PO QID Eliquis (Apixaban) 2.5 Mg Tablet 1 Tab PO Q12H 30 Days Atrovent Nasal Hansen 0.06* (Ipratropium [place]) 42 Mcg (0.06 %) Hansen 2 Sprays BOTHNARES Q8H 20 Days Isosorbide Mononitrate ER (Isosorbide Mononitrate) 120 Mg Tab.er.24h 1 Tab PO DAILY 30 Days Aricept (Donepezil HCl) 10 Mg Tablet 10 Mg PO HS Baclofen 10 Mg Tablet 1 Tab PO HS 30 Days Lipitor* (Atorvastatin Calcium) 40 Mg Tablet 1 Tab PO HS 30 Days Past Medical History Past Medical History CHF, AFib, CVA, coronary artery disease status post stent, CABG, pacemaker, chronic anemia Past Surgical History Surgical History Comment CABG,pacemaker Family History Family History: FH: heart failure (Mother,) MOTHER FH: stroke FATHER Past Social History Social History Comment No history of smoking Exam Vitals: Vital Signs Date Time Temp Pulse Resp B/P (MAP) Pulse Ox O2 Delivery O2 Flow Rate FiO2 08/05/24 16:25 16 95 Room Air 08/05/24 15:00 97.8 93 120/66 (84) 08/04/24 08:02 08/04/24 05:22 N/A General: No distress HEENT: NC/AT, PERRLA,EOMI Neck: No LAP Chest: Symmetric expansion Cardiovascular: Nl S1/S2 Abdomen: Soft ,non tender Extremities: No c/c/e Diagnostic Data Last Recorded Lab Results: 08/05/24 0551 08/05/24 0551 Diagnostic Data: Laboratory Tests Test 08/01/24 10:49 Prothrombin Time 11.8 SECONDS (9.0-12.0) INR International Normalized Ratio 1.2 INR Activated Partial Thromboplast Time 31 SECONDS (22-32) Coagulation Comments Additional Plan Right and left pleural effuions Will perform US thoracentesis both sides Left side effusion too small for thoracentesis .Only right side thoracentesis performed. Note is for 08/04/2024 GIOVANNI BENAVIDEZ MD August 06, 2024 23:56
--- NOTE | 2024-08-07 00:12 | PROGRESS NOTE ---
Subjective Subjective F/u after thoracentesis on 08/04/2024. F/U visit on 08/05/2024 Reason for visit: F/u after right thoracentesis Reviewed: Care Plan, H&P, Labs, Medications, Radiology System Changes Review of systems As in HPI Daily Progress Note Exam Vitals Vital Signs Date Time Temp Pulse Resp B/P (MAP) Pulse Ox O2 Delivery O2 Flow Rate FiO2 08/05/24 16:25 16 95 Room Air 08/05/24 15:00 97.8 93 120/66 (84) 08/04/24 08:02 08/04/24 05:22 N/A Result Diagram: 08/05/24 0551 08/05/24 0551 Exam HEENT:NC/AT,PERRL Neck:No LAP Chest :Symmetric expansion Pulm:Reduced BS bilaterally Abd :Soft non tender Extr:Noc/c/e Results Coagulation Studies Laboratory Tests Test 08/01/24 10:49 Prothrombin Time 11.8 SECONDS (9.0-12.0) INR International Normalized Ratio 1.2 INR Activated Partial Thromboplast Time 31 SECONDS (22-32) Coagulation Comments VTE VTE Risk Score VTE Risk Score Reference Ranges: Score 0-1 = Low Risk (Aggressive mobilization; early ambulation; no VTE prophylaxis required) Score 2: Moderate Risk (Intermittent/Pneumatic Compression Device OR Lovenox/Heparin/Coumadin) Score 3-4: High Risk (Intermittent/Pneumatic Compression Device AND Lovenox/Heparin/Coumadin) Score > or = 5: Highest Risk (Intermittent/Pneumatic Compression Device AND Lovenox/Heparin/Coumadin) Assessment/Plan Plan Bilateral thoracentesis planned Addendum:Only right thoracentesis performed.Left pleural effusion deemed too small for thoracentesis. This note is for the 08/04/2024 GIOVANNI BENAVIDEZ MD August 07, 2024 00:12
--- NOTE | 2024-08-07 00:23 | PROCEDURE NOTE CC ---
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 1% lidocaine used for local anesthetic. Needle inserted and thoracentesis performed.Serosanguinous effusion drained. Estimated Blood Loss N/A Complication None X-Ray Findings No pneumothorax GIOVANNI BENAVIDEZ MD August 07, 2024 00:23
== END 2024-08-05 17:30 | DRG 280 ==
LOC: ER 10:24 → ED HOLD 13:06 → PCU 3S 19:15
PROVIDERS: ADMIT Internal Medicine; ATTEND Internal Medicine
PROC: 0W993ZZ Drainage of Right Pleural Cavity, Percutaneous Approach (ICD-10-PCS; principal; 2024-08-04)
DX: I13.0 Hypertensive heart and chronic kidney disease with heart failure and stage 1 through stage 4 chronic kidney disease, or unspecified chronic kidney disease (principal); I50.33 Acute on chronic diastolic (congestive) heart failure; I21.A1 Myocardial infarction type 2; N17.9 Acute kidney failure, unspecified; I25.10 Atherosclerotic heart disease of native coronary artery without angina pectoris; Z66 Do not resuscitate; N18.9 Chronic kidney disease, unspecified; D50.8 Other iron deficiency anemias; F32.A Depression, unspecified; G20.A1 Parkinson's disease without dyskinesia, without mention of fluctuations; F02.80 Dementia in other diseases classified elsewhere, unspecified severity, without behavioral disturbance, psychotic disturbance, mood disturbance, and anxiety; E78.5 Hyperlipidemia, unspecified; I48.0 Paroxysmal atrial fibrillation; Z79.01 Long term (current) use of anticoagulants; Z79.899 Other long term (current) drug therapy; Z95.1 Presence of aortocoronary bypass graft; Z86.73 Personal history of transient ischemic attack (TIA), and cerebral infarction without residual deficits; Z95.0 Presence of cardiac pacemaker; Z95.5 Presence of coronary angioplasty implant and graft
CPT/HCPCS: 32555; 36415; 71045; 76700; 80048; 80053; 81003; 82272; 82570; 82945; 83036; 83540; 83550; 83605; 83615; 83735; 83880; 83986; 84145; 84157; 84300; 84484; 85008; 85025; 85610; 85730; 87040; 87070; 87081; 89051; 93005; 93306; 93970; 96374; 96376; 97110; 97116; 97161; 97530; 99285; A6258; A6449; A6590; G0378; J0360; J1938